=== PATIENT | male | born 1970 | race Two or more races ===

== ENCOUNTER 2020-07-08 07:18 | Inpatient (IN) | payer SELFPAY ==
[~2020-07-08] VITALS: Ht 170.2 cm; Wt 105.5 kg
[2020-07-08 08:27] LABS: Basophils # (auto) 0.1 10 ^3/uL (0-0.2); Basophils % (auto) 0.9 % (0.0-2.0); Eosinophils # (auto) 0.1 10 ^3/uL (0-0.8); Eosinophils % (auto) 1.8 % (0.0-7.0); Hematocrit 42.2 % (41.0-53.0); Hemoglobin 14.3 g/dL (13.5-17.5); Lymphocytes # (auto) 2.1 10 ^3/uL (0.4-5.4); Mean Corpuscular Hemoglobin 32.4 pg (28.0-32.0); Mean Corpuscular Hgb Conc. 33.9 g/dL (32.0-36.0); Mean Corpuscular Volume 95.5 fL (80.0-100.0); Monocytes # (auto) 0.5 10 ^3/uL (0-1.3); Monocytes % (auto) 7.9 % (0.0-12.0); Neutrophils # (auto) 3.9 10 ^3/uL (1.6-8.6); Neutrophils % (auto) 58.4 % (37.0-80.0); Nucleated Red Blood Cells % 0.1 %; Platelet Count (auto) 176 10^3/uL (140-450); Red Blood Cells 4.42 10^6/uL (4.5-5.90); Red Cell Distribution Width 14.6 % (11.8-14.3); White Blood Cell 6.7 10^3/uL (4.4-10.8)
[2020-07-08 08:39] LABS: Albumin 3.5 g/dL (3.4-5.0); Calcium 8.1 mg/dL (8.5-10.1); Magnesium 2.4 mg/dL (1.6-2.6)
[2020-07-08 08:46] LABS: BUN/Creatinine Ratio 19.5; Bilirubin, Total 0.7 mg/dL (0.2-1.0); Total Protein 6.4 g/dL (6.4-8.2)
[2020-07-08] MEDS ORDERED: LORazepam 2MG/ML-1ML VIAL IV ONE (09:30)
[2020-07-08] MEDS ORDERED: FUROSEMIDE 20 MG/2 ML VIAL IV ONE (09:45)
[2020-07-08] MEDS ORDERED: ENOXAPARIN SOD 100 MG/1 ML SYRINGE SC ONE (10:00)
[2020-07-08] MEDS ORDERED: ASPirin 81 mg TAB PO ONE (10:00)
[2020-07-08 10:15] LABS: Urine Bacteria FEW /hpf (None Seen); Urine Blood Negative /uL (Negative); Urine Mucus FEW (None Seen); Urine Specific Gravity 1.028 (1.001-1.035); Urine WBC 1 /hpf (0 - 3)
[2020-07-08] MEDS ORDERED: NITROGLYCERIN 0.4 MG SL TAB SL PRN (10:45)
[2020-07-08] MEDS ORDERED: traMADol HCL 50 MG TAB PO PRN (10:45)
[2020-07-08] MEDS ORDERED: MORPHINE SULF INJ 2 MG/ML SYRINGE 1ML IV PRN ×2 (10:45)
[2020-07-08] MEDS ORDERED: PROMETHAZINE HCL 25 MG/ML 1ML IV PRN (10:45)
[2020-07-08] MEDS ORDERED: LACTULOSE 20Gm/30ML SOLN PO PRN (10:45)
[2020-07-08] MEDS ORDERED: DEXTROSE (50%) 50ML SYRG IV PRN (10:45)
[2020-07-08] MEDS ORDERED: TEMAZEPAM 15 MG CAP PO PRN (10:45)
[2020-07-08 11:24] LABS: Hepatitis B Surface Antibody Negative
[2020-07-08 11:27] LABS: Alcohol, Urine < 3.0 mg/dL (0-10); Amphetamine Screen, Urine NEGATIVE (NEGATIVE); Barbiturate Scree,Urine NEGATIVE (NEGATIVE); Benzodiazephine Screen, Urine NEGATIVE (NEGATIVE); Cannabinoid Screen, Urine NEGATIVE (NEGATIVE); Cocaine Screen, Urine NEGATIVE (NEGATIVE); Opiate Scree,Urine NEGATIVE (NEGATIVE); Phencyclidine Screen, Urine NEGATIVE (NEGATIVE)
[2020-07-08 12:02] LABS: Hepatitis A Total Antibody Positive
[2020-07-08] MEDS: ACCU-CHEK COMFORT CURVE STRIP VI SCH ×3 (12:14→21:36)
[2020-07-08] MEDS: InsuLIN REG 1unit/0.01ml Soln (100units/ml) SC SCH ×3 (12:30→21:35)
[2020-07-08 13:13] LABS: Hepatitis B Surface Antigen Negative (Negative)
[2020-07-08 13:14] LABS: Hepatitis B Core Total AB Negative; Hepatitis C Antibody Negative (Negative)
--- NOTE | 2020-07-08 13:38 | NUR ---
Telemetry admit from [facility] admitted to Telemetry unit after SBAR received. Patient oriented to KATINA MANLEYRN primary RN, unit, room, bed, and unit policies regarding patient care and visiting hours. Patient now on continuous telemetry monitoring, tele box # [id number] and telemetry reading on arrival to unit is SINUS RHYTHM WITH HEART RATE IN THE 70'S. Patient placed on bedside oxygen, weighed by bedscale and encouraged to call if they need something. All questions and concerns addressed, patient verbalized understanding. Note:
[2020-07-08 14:00] VITALS: BP 125/84
[2020-07-08] MEDS: SODIUM CHLOR 0.9% PF (SALINE LOCK) 10ML VIAL/SYR IV SCH ×2 (14:00→23:23)
[2020-07-08 16:39] VITALS: BP 120/89
--- NOTE | 2020-07-08 19:10 | NUR ---
Assumed care of patient from day shift RN, awake and alert and oriented x4. No S/S of distress/SOB or pain. Instructed on POC and to call for assist PRN, safety measures in place call light with in reach bed in lowest position and side rails up x2. will continue to monitor for changes Q1hr and PRN.
[2020-07-08 20:00] VITALS: BP 121/95
[2020-07-08] MEDS: CARVEDILOL 3.125 MG TAB PO SCH (21:36)
[2020-07-08 22:00] VITALS: BP 121/95
[2020-07-09 05:00] VITALS: BP 125/78
[2020-07-09] MEDS: SODIUM CHLOR 0.9% PF (SALINE LOCK) 10ML VIAL/SYR IV SCH ×3 (05:58→22:03)
[2020-07-09] MEDS: InsuLIN REG 1unit/0.01ml Soln (100units/ml) SC SCH ×4 (06:09→22:00)
[2020-07-09] MEDS: ACCU-CHEK COMFORT CURVE STRIP VI SCH ×4 (06:09→22:03)
[2020-07-09 06:57] LABS: Albumin 3.2 g/dL (3.4-5.0); Calcium 8.3 mg/dL (8.5-10.1); Potassium 3.7 mmol/L (3.5-5.1)
[2020-07-09 07:03] LABS: BUN/Creatinine Ratio 18.4; Bilirubin, Total 1.2 mg/dL (0.2-1.0)
[2020-07-09 09:06] VITALS: BP 115/81
[2020-07-09] MEDS: ASPirin 81 mg TAB PO SCH (09:34)
[2020-07-09] MEDS: POTASSIUM CHL 20 Meq TABLET PO SCH (09:35)
[2020-07-09] MEDS: CARVEDILOL 3.125 MG TAB PO SCH ×2 (09:36→22:03)
[2020-07-09] MEDS: FUROSEMIDE 40 MG/4 ML VIAL IV SCH (09:36)
[2020-07-09] MEDS ORDERED: ENALAPRIL MALEATE 2.5 MG TAB PO SCH (10:00)
[2020-07-09] MEDS ORDERED: NITROGLYCERIN 0.2MG/HR TOPICAL PATCH TD SCH (10:00)
[2020-07-09] MEDS ORDERED: ENOXAPARIN SOD 40 MG/0.4 ML SYRINGE SC SCH (10:00)
--- NOTE | 2020-07-09 11:15 | NUR ---
Assumed care of patient Received report from GRACE Schreiber.
--- NOTE | 2020-07-09 11:45 | NUR ---
Dr. Gardner at bedside Discussing POC with patient. No new orders received.
--- NOTE | 2020-07-09 12:26 | NUR ---
Assessment Patient is a 50-year-old male who is alert and oriented. Prior to admission patient lived with family and functioned independently. Per Patient he will return home to his prior living arrangements post discharge and family will transport him home. Per Patient he came in to the hospital for shortness of breath. Patient does not have health insurance. Patient was refer to [facility] Medical consulted. Per patient they already contact him and he needs to bring documentation for the [employer] application. Patient verbalize understanding. Addendum: 07/09/20 at 1313 by BIPIN JONES Amended: Links added.
[2020-07-09 12:34] VITALS: BP 112/85
--- NOTE | 2020-07-09 14:55 | NUR ---
Paging Dr. Gardner Patient c/o ALEX; pain level 3/10 on adult pain scale. Patient only has pain medication ordered for pain scale 4-6. Paging for orders.
[2020-07-09] MEDS ORDERED: ACETAMINOPHEN 325 MG TAB PO PRN (15:15)
--- NOTE | 2020-07-09 15:15 | NUR ---
Received call back Spoke to Dr. Gardner in regards to patient's ALEX. Received new orders for Acetaminophen. Orders read back to verify. Will implement.
[2020-07-09 16:44] VITALS: BP 121/76
--- NOTE | 2020-07-09 19:35 | NUR ---
Opening Shift Note Assumed care of patient, awake and alert x4. No S/S of distress/SOB or pain. Instructed on POC and to call for assist PRN, will continue to monitor for changes Q1hr and PRN.
[2020-07-09 22:00] VITALS: BP 116/88
[2020-07-10 05:00] VITALS: BP 117/87
[2020-07-10] MEDS: SODIUM CHLOR 0.9% PF (SALINE LOCK) 10ML VIAL/SYR IV SCH ×2 (05:53→14:33)
[2020-07-10 06:04] LABS: Basophils # (auto) 0.1 10 ^3/uL (0-0.2); Basophils % (auto) 0.9 % (0.0-2.0); Eosinophils # (auto) 0.1 10 ^3/uL (0-0.8); Eosinophils % (auto) 2.4 % (0.0-7.0); Hematocrit 42.3 % (41.0-53.0); Hemoglobin 14.4 g/dL (13.5-17.5); Lymphocytes # (auto) 1.9 10 ^3/uL (0.4-5.4); Lymphocytes % (auto) 29.7 % (10.0-50.0); Mean Corpuscular Hemoglobin 32.4 pg (28.0-32.0); Mean Corpuscular Hgb Conc. 34.1 g/dL (32.0-36.0); Mean Corpuscular Volume 95.1 fL (80.0-100.0); Monocytes # (auto) 0.6 10 ^3/uL (0-1.3); Monocytes % (auto) 10.3 % (0.0-12.0); Neutrophils # (auto) 3.5 10 ^3/uL (1.6-8.6); Neutrophils % (auto) 56.7 % (37.0-80.0); Nucleated Red Blood Cells % 0.1 %; Platelet Count (auto) 177 10^3/uL (140-450); Red Blood Cells 4.45 10^6/uL (4.5-5.90); Red Cell Distribution Width 14.3 % (11.8-14.3); White Blood Cell 6.2 10^3/uL (4.4-10.8)
[2020-07-10 06:24] LABS: Calcium 8.5 mg/dL (8.5-10.1); Potassium 3.7 mmol/L (3.5-5.1)
[2020-07-10 06:26] LABS: BUN/Creatinine Ratio 17.2
[2020-07-10] MEDS: ACCU-CHEK COMFORT CURVE STRIP VI SCH ×3 (06:27→17:00)
[2020-07-10] MEDS: InsuLIN REG 1unit/0.01ml Soln (100units/ml) SC SCH ×3 (06:27→17:00)
--- NOTE | 2020-07-10 07:30 | NUR ---
Opening Shift Note Assumed care of patient, who is alert and oriented x4. Noted even chest rise and fall. Respirations unlabored. No S/S of distress/SOB or pain. Bed is low, locked with 2x side rails up. Call light is within reach. Instructed on POC and to call for assist PRN, will continue to monitor for changes Q1hr and PRN.
[2020-07-10] MEDS: SACUBITRIL-VALSARTAN 24mg/26mg TAB PO SCH ×2 (07:47→10:00)
[2020-07-10 08:59] VITALS: BP 116/87
[2020-07-10] MEDS: CARVEDILOL 3.125 MG TAB PO SCH (09:22)
[2020-07-10] MEDS: ASPirin 81 mg TAB PO SCH (09:22)
[2020-07-10] MEDS: FUROSEMIDE 40 MG/4 ML VIAL IV SCH (09:22)
[2020-07-10] MEDS: POTASSIUM CHL 20 Meq TABLET PO SCH (09:23)
[2020-07-10] MEDS ORDERED: DIGOXIN 0.125 MG TAB PO SCH (10:00)
[2020-07-10] MEDS ORDERED: SPIRONOLACTONE 25 MG TAB PO SCH (10:00)
--- NOTE | 2020-07-10 11:05 | NUR ---
Dr. Gardner at bedside Discussing POC with patient. Patient states that he had a LHC at [facility] about three months ago and per patient, they did not do any interventions. Patient to be discharged today. Addendum: 07/10/20 at 1121 by Rose Sheriff RN RN Patient will not be discharged until cleared by cardiology due to patient's ejection fraction.
--- NOTE | 2020-07-10 11:06 | NUR ---
Nutrition Assessment Est energy needs [id number] kcal (14-18 kcal/kg BW 105.5kg) Est protein needs 67-87g (1-1.3g/kg IBW 67kg) will reassess prn. Addendum: 07/10/20 at [address] Amended: Links added.
[2020-07-10] MEDS ORDERED: POTA-220 PO (11:12)
[2020-07-10] MEDS ORDERED: FURO1TAB33 PO (11:12)
[2020-07-10] MEDS ORDERED: ASPI81CH43 PO (11:12)
[2020-07-10] MEDS ORDERED: ATOR10TA PO (11:13)
[2020-07-10 13:00] VITALS: BP 121/82
[2020-07-10] MEDS ORDERED: SACU1TAB PO (14:09)
[2020-07-10] MEDS ORDERED: CAR3125T PO (14:09)
[2020-07-10] MEDS ORDERED: DIGO0.1238 PO (14:09)
--- NOTE | 2020-07-10 14:22 | NUR ---
Cleared from cardiology. Informed Dr. Allen that per patient, he had a LHC at [place] and no interventions were done. Received orders to cancel LHC for Sunday. Also informed MD that patient is aware of low EF and per patient, he had a zoll life vest last year but due to malfunction/pricing has not been able to replace it. Patient aware of risks of not having zoll life vest. Per MD, patient can be discharged. Patient to be discharged with Digoxin 0.125 mg PO BID, Entresto 24-26 mg PO BID, Coreg 0.125 mg PO BID. Paged hospitalist Dr. Gardner to make aware. Hospitalist to write prescription for patient. Patient aware that he needs to follow up with [facility] post-discharge clinic and cardiology. Will proceed with discharge.
[2020-07-10 16:21] VITALS: BP 121/82
[2020-07-10 16:59] VITALS: BP 121/83
--- NOTE | 2020-07-10 17:21 | NUR ---
Discharge instructions given as ordered. Encourage to follow up with PMD as instructed. Patient scheduled for follow up appointment with [facility] post-discharge clinic. Patient stated he is in the process of applying for medi-elvia. All questions and concerns addressed. Patient verbalized understanding. Patient given hard copy of prescription and encouraged patient to begin taking medications tomorrow. IV removed with catheter intact, pressure dressing applied.Telemetry unit returned to ICU. Patient ambulated off unit with all personal belongings. No distress noted at time of departure.
== END 2020-07-10 17:25 | disposition home or self-care (01) | DRG 280 ==
LOC: ER 07:18 → TELE 07:19 → TELE-WESTW 13:39
PROVIDERS: ADMIT Internal Medicine; ATTEND Internal Medicine Pulmonary Disease
DX: I21.4 Non-ST elevation (NSTEMI) myocardial infarction (principal); I50.43 Acute on chronic combined systolic (congestive) and diastolic (congestive) heart failure; I11.0 Hypertensive heart disease with heart failure; E66.01 Morbid (severe) obesity due to excess calories; Z68.36 Body mass index [BMI] 36.0-36.9, adult; R79.89 Other specified abnormal findings of blood chemistry; E11.65 Type 2 diabetes mellitus with hyperglycemia; R16.0 Hepatomegaly, not elsewhere classified; G47.30 Sleep apnea, unspecified; F41.9 Anxiety disorder, unspecified
CPT/HCPCS: 36415; 71045; 76705; 80048; 80053; 80061; 80307; 81001; 82550; 82962; 83036; 83735; 83880; 84484; 85025; 86704; 86706; 86708; 86803; 87340; 93306; 96372; 96374; 96375; G0378; J1815

== ENCOUNTER 2022-09-01 16:43 | Inpatient (IN) | payer MEDICAID ==
[~2022-09-01] VITALS: Ht 167.6 cm; Wt 101.7 kg
[~2022-09-01 16:43] MED LIST: ALBUAER3 IN; ASCO10003 PO; ASPI-378 PO; ASPI81CH43 PO; ATOR10TA PO; CAR3125T PO; CARV12.544 PO; DAPA1TAB4 PO; DEX4T PO; DIGO1TAB48 PO; DOXY-286 PO; FURO1TAB33 PO; INSLANTI SC; LISI20TA28 PO; LOSA25TA2 PO; LOSA25TA38 PO; METF-371 PO; PANT40TA2 PO; POM; POTA-220 PO; SACU1TAB PO; ZINC220T6 PO
[2022-09-01 17:33] LABS: Basophils # (auto) 0.1 10 ^3/uL (0-0.2); Eosinophils # (auto) 0.2 10 ^3/uL (0-0.8); Eosinophils % (auto) 2.6 % (0.0-7.0); Hematocrit 42.6 % (41.0-53.0); Hemoglobin 14.4 g/dL (13.5-17.5); Lymphocytes # (auto) 1.8 10 ^3/uL (0.4-5.4); Lymphocytes % (auto) 29.8 % (10.0-50.0); Mean Corpuscular Hemoglobin 31.5 pg (28.0-32.0); Mean Corpuscular Hgb Conc. 33.9 g/dL (32.0-36.0); Mean Corpuscular Volume 92.9 fL (80.0-100.0); Monocytes # (auto) 0.6 10 ^3/uL (0-1.3); Neutrophils # (auto) 3.5 10 ^3/uL (1.6-8.6); Neutrophils % (auto) 57.6 % (37.0-80.0); Nucleated Red Blood Cells % 0.3 %; Red Blood Cells 4.58 10^6/uL (4.5-5.90); White Blood Cell 6.2 10^3/uL (4.4-10.8)
[2022-09-01 17:46] LABS: INR 1.03 (0.9-1.15); Partial Thromboplastin Time 26.4 sec (24.6-33.4)
[2022-09-01 17:55] LABS: Albumin 3.9 g/dL (3.4-5.0); BUN/Creatinine Ratio 18.9; Calcium 8.9 mg/dL (8.5-10.1); Magnesium 2.4 mg/dL (1.6-2.6); Potassium 4.2 mmol/L (3.5-5.1)
[2022-09-01 17:57] LABS: Bilirubin, Total 0.5 mg/dL (0.2-1.0); Total Protein 7.2 g/dL (6.4-8.2)
[2022-09-01] MEDS ORDERED: IOHEXOL 350 MG/ML 100ML IJ ONE (18:56)
[2022-09-01 20:36] LABS: Urine Bacteria NONE SEEN /hpf (None Seen); Urine Blood Negative /uL (Negative); Urine Hyaline Cast FEW /lpf (0 - 2); Urine Mucus FEW (None Seen); Urine Specific Gravity 1.029 (1.001-1.035); Urine WBC 1 /hpf (0 - 3)
[2022-09-01] MEDS ORDERED: ASPirin 325 MG TAB PO ONE (21:30)
[2022-09-01] MEDS ORDERED: HEPARIN SODIUM (PORCINE) 5000 UNITS/ML 1ML VIAL IV ONE (23:00)
[2022-09-01] MEDS ORDERED: DOCUSATE SOD 100 MG CAP PO PRN (23:45)
[2022-09-01] MEDS ORDERED: HYDROcodone-ACET 5/325MG TAB PO PRN (23:45)
[2022-09-01] MEDS ORDERED: DEXTROSE (50%) 50ML SYRG IV PRN (23:45)
[2022-09-01] MEDS ORDERED: NITROGLYCERIN 0.4 MG SL TAB SL PRN (23:45)
[2022-09-01] MEDS ORDERED: MORPHINE SULFATE INJ 2 MG/ml SYRG IV PRN (23:45)
[2022-09-01] MEDS ORDERED: ONDANSETRON HCL 4 MG/2 ML VIAL IV PRN (23:45)
[2022-09-01] MEDS ORDERED: ACETAMINOPHEN 325 MG TAB PO PRN (23:45)
[2022-09-02] MEDS: SODIUM CHLOR 0.9% PF (SALINE LOCK) 10ML VIAL/SYR IV SCH ×3 (06:00→22:00)
[2022-09-02 06:01] LABS: Basophils # (auto) 0.1 10 ^3/uL (0-0.2); Basophils % (auto) 0.9 % (0.0-2.0); Eosinophils # (auto) 0.2 10 ^3/uL (0-0.8); Eosinophils % (auto) 2.7 % (0.0-7.0); Hematocrit 41.7 % (41.0-53.0); Hemoglobin 13.8 g/dL (13.5-17.5); Lymphocytes # (auto) 1.7 10 ^3/uL (0.4-5.4); Lymphocytes % (auto) 28.4 % (10.0-50.0); Mean Corpuscular Hemoglobin 30.5 pg (28.0-32.0); Mean Corpuscular Volume 92.5 fL (80.0-100.0); Monocytes # (auto) 0.6 10 ^3/uL (0-1.3); Monocytes % (auto) 9.4 % (0.0-12.0); Neutrophils # (auto) 3.5 10 ^3/uL (1.6-8.6); Neutrophils % (auto) 58.6 % (37.0-80.0); Nucleated Red Blood Cells % 0.1 %; Red Blood Cells 4.51 10^6/uL (4.5-5.90); Red Cell Distribution Width 14.1 % (11.8-14.3); White Blood Cell 5.9 10^3/uL (4.4-10.8)
[2022-09-02 06:29] LABS: Albumin 3.4 g/dL (3.4-5.0); Calcium 8.9 mg/dL (8.5-10.1); Potassium 4.1 mmol/L (3.5-5.1)
[2022-09-02 06:33] LABS: BUN/Creatinine Ratio 19.7; Bilirubin, Total 0.7 mg/dL (0.2-1.0); Total Protein 6.6 g/dL (6.4-8.2)
[2022-09-02] MEDS: ACCU-CHEK COMFORT CURVE STRIP VI SCH ×4 (06:36→22:00)
[2022-09-02] MEDS: InsuLIN REG 1unit/0.01ml Soln (100units/ml) SC SCH ×4 (06:43→23:03)
[2022-09-02] MEDS: ASPirin 81 mg TAB PO SCH (10:21)
[2022-09-02] MEDS: FAMOTIDINE (10MG/ML) 2ML VL IV SCH (10:21)
[2022-09-02] MEDS: FUROSEMIDE 40 MG/4 ML VIAL IV SCH (10:22)
[2022-09-02] MEDS: HEPARIN SODIUM (PORCINE) 5000 UNITS/ML 1ML VIAL SC SCH ×2 (10:23→23:01)
[2022-09-02] MEDS: CARVEDILOL 3.125 MG TAB PO SCH (22:56)
[2022-09-03] MEDS: SODIUM CHLOR 0.9% PF (SALINE LOCK) 10ML VIAL/SYR IV SCH ×3 (06:00→21:38)
[2022-09-03] MEDS: ACCU-CHEK COMFORT CURVE STRIP VI SCH ×4 (06:56→21:42)
[2022-09-03] MEDS: InsuLIN REG 1unit/0.01ml Soln (100units/ml) SC SCH ×4 (06:58→21:51)
[2022-09-03] MEDS: ASPirin 81 mg TAB PO SCH (11:29)
[2022-09-03] MEDS: FAMOTIDINE (10MG/ML) 2ML VL IV SCH (11:29)
[2022-09-03] MEDS: FUROSEMIDE 40 MG/4 ML VIAL IV SCH (11:29)
[2022-09-03] MEDS: ENALAPRIL MALEATE 2.5 MG TAB PO SCH (11:30)
[2022-09-03] MEDS: CARVEDILOL 3.125 MG TAB PO SCH ×2 (11:30→21:49)
[2022-09-03] MEDS: HEPARIN SODIUM (PORCINE) 5000 UNITS/ML 1ML VIAL SC SCH ×2 (11:36→21:59)
[2022-09-03] MEDS ORDERED: ATORVASTATIN 20 MG TAB PO SCH (22:00)
[2022-09-03 23:24] VITALS: BP 131/92
[2022-09-04] VITALS (9 sets, daily range): BP systolic 114–131; BP diastolic 70–92
[2022-09-04] MEDS: SODIUM CHLOR 0.9% PF (SALINE LOCK) 10ML VIAL/SYR IV SCH (06:02)
[2022-09-04] MEDS: InsuLIN REG 1unit/0.01ml Soln (100units/ml) SC SCH ×4 (06:30→21:39)
[2022-09-04] MEDS: ACCU-CHEK COMFORT CURVE STRIP VI SCH ×4 (06:30→21:39)
[2022-09-04] MEDS: ASPirin 81 mg TAB PO SCH (10:25)
[2022-09-04] MEDS: CARVEDILOL 3.125 MG TAB PO SCH ×2 (10:27→21:43)
[2022-09-04] MEDS: FUROSEMIDE 40 MG/4 ML VIAL IV SCH (10:28)
[2022-09-04] MEDS: FAMOTIDINE (10MG/ML) 2ML VL IV SCH (10:28)
[2022-09-04] MEDS: ENALAPRIL MALEATE 2.5 MG TAB PO SCH (10:28)
[2022-09-04] MEDS: HEPARIN SODIUM (PORCINE) 5000 UNITS/ML 1ML VIAL SC SCH (10:29)
[2022-09-04 14:24] LABS: Cholesterol 218 mg/dL (< 200); HDL Cholesterol 43 mg/dL (40-59); LDL Cholesterol 156 mg/dL (< 100); Triglycerides 159 mg/dL (< 150)
[2022-09-04] MEDS: ATORVASTATIN 20 MG TAB PO SCH (21:39)
[2022-09-05] VITALS (7 sets, daily range): BP systolic 110–131; BP diastolic 75–90
[2022-09-05] MEDS: InsuLIN REG 1unit/0.01ml Soln (100units/ml) SC SCH ×4 (05:52→21:40)
[2022-09-05] MEDS: ACCU-CHEK COMFORT CURVE STRIP VI SCH ×4 (05:52→21:43)
[2022-09-05] MEDS: ASPirin 81 mg TAB PO SCH (09:11)
[2022-09-05] MEDS: EMPAGLIFLOZIN 10 MG TAB PO SCH (09:13)
[2022-09-05] MEDS: CARVEDILOL 3.125 MG TAB PO SCH ×2 (09:13→21:43)
[2022-09-05] MEDS: ENALAPRIL MALEATE 2.5 MG TAB PO SCH (09:14)
[2022-09-05] MEDS: ENOXAPARIN SOD 40 MG/0.4 ML SYRINGE SC SCH (09:14)
[2022-09-05] MEDS: FUROSEMIDE 20 MG TAB PO SCH (09:14)
[2022-09-05] MEDS ORDERED: DAPAGLIFLOZIN 5 MG TAB PO SCH (10:00)
[2022-09-05] MEDS: ATORVASTATIN 20 MG TAB PO SCH (21:42)
[2022-09-06] VITALS (7 sets, daily range): BP systolic 120–141; BP diastolic 75–85
[2022-09-06] MEDS: InsuLIN REG 1unit/0.01ml Soln (100units/ml) SC SCH ×4 (06:15→22:00)
[2022-09-06] MEDS: ACCU-CHEK COMFORT CURVE STRIP VI SCH ×4 (06:16→22:15)
[2022-09-06] MEDS: ASPirin 81 mg TAB PO SCH (09:06)
[2022-09-06] MEDS: FUROSEMIDE 20 MG TAB PO SCH (09:06)
[2022-09-06] MEDS: ENOXAPARIN SOD 40 MG/0.4 ML SYRINGE SC SCH (09:06)
[2022-09-06] MEDS: EMPAGLIFLOZIN 10 MG TAB PO SCH (09:07)
[2022-09-06] MEDS: CARVEDILOL 3.125 MG TAB PO SCH ×2 (09:07→22:15)
[2022-09-06] MEDS: ENALAPRIL MALEATE 2.5 MG TAB PO SCH (09:08)
[2022-09-06] MEDS: ATORVASTATIN 20 MG TAB PO SCH (22:14)
[2022-09-07 05:00] VITALS: BP 119/66
[2022-09-07] MEDS: InsuLIN REG 1unit/0.01ml Soln (100units/ml) SC SCH ×4 (06:53→22:00)
[2022-09-07] MEDS: ACCU-CHEK COMFORT CURVE STRIP VI SCH ×4 (06:53→22:08)
[2022-09-07 08:00] VITALS: BP 122/87
[2022-09-07] MEDS: ENOXAPARIN SOD 40 MG/0.4 ML SYRINGE SC SCH (11:38)
[2022-09-07] MEDS: EMPAGLIFLOZIN 10 MG TAB PO SCH (11:39)
[2022-09-07] MEDS: ASPirin 81 mg TAB PO SCH (11:40)
[2022-09-07] MEDS: ENALAPRIL MALEATE 2.5 MG TAB PO SCH (11:40)
[2022-09-07] MEDS: CARVEDILOL 3.125 MG TAB PO SCH ×2 (11:40→22:08)
[2022-09-07] MEDS: FUROSEMIDE 20 MG TAB PO SCH (11:40)
[2022-09-07 12:00] VITALS: BP 129/84
[2022-09-07 16:00] VITALS: BP 117/77
[2022-09-07 19:58] LABS: Alcohol, Urine < 3.0 mg/dL (0-10); Amphetamine Screen, Urine NEGATIVE (NEGATIVE); Barbiturate Scree,Urine NEGATIVE (NEGATIVE); Benzodiazephine Screen, Urine NEGATIVE (NEGATIVE); Cannabinoid Screen, Urine NEGATIVE (NEGATIVE); Cocaine Screen, Urine NEGATIVE (NEGATIVE); Opiate Scree,Urine NEGATIVE (NEGATIVE); Phencyclidine Screen, Urine NEGATIVE (NEGATIVE)
[2022-09-07 22:00] VITALS: BP 115/80
[2022-09-07] MEDS: ATORVASTATIN 20 MG TAB PO SCH (22:08)
[2022-09-08] VITALS (8 sets, daily range): BP systolic 109–125; BP diastolic 75–92
[2022-09-08] MEDS: InsuLIN REG 1unit/0.01ml Soln (100units/ml) SC SCH ×3 (07:00→17:55)
[2022-09-08] MEDS: ACCU-CHEK COMFORT CURVE STRIP VI SCH ×3 (07:29→17:00)
[2022-09-08] MEDS ORDERED: MIDAZOLAM HCL 2MG/2ML 2ml VIAL (1mg/ml) IV ONE (09:15)
[2022-09-08] MEDS ORDERED: diphenhdrAMINE HCL 50 MG/1 ML VL IV ONE (09:15)
[2022-09-08] MEDS ORDERED: fentaNYL CITRATE 100 MCG/2 ML VL IV ONE (09:15)
[2022-09-08] MEDS ORDERED: LIDOCAINE VISCOUS 2% 15ML UD MT ONE (09:15)
[2022-09-08] MEDS ORDERED: ONDANSETRON HCL 4 MG/2 ML VIAL IV ONE (09:15)
[2022-09-08 09:45] LABS: INR 1.07 (0.9-1.15); Partial Thromboplastin Time 27.6 sec (24.6-33.4)
[2022-09-08 09:48] LABS: Basophils # (auto) 0 10 ^3/uL (0-0.2); Basophils % (auto) 0.6 % (0.0-2.0); Eosinophils # (auto) 0.2 10 ^3/uL (0-0.8); Eosinophils % (auto) 2.4 % (0.0-7.0); Hematocrit 44.8 % (41.0-53.0); Hemoglobin 15.2 g/dL (13.5-17.5); Lymphocytes # (auto) 2.1 10 ^3/uL (0.4-5.4); Lymphocytes % (auto) 28.4 % (10.0-50.0); Mean Corpuscular Hemoglobin 31.5 pg (28.0-32.0); Mean Corpuscular Hgb Conc. 33.8 g/dL (32.0-36.0); Mean Corpuscular Volume 92.9 fL (80.0-100.0); Monocytes # (auto) 0.9 10 ^3/uL (0-1.3); Monocytes % (auto) 13.1 % (0.0-12.0); Neutrophils % (auto) 55.5 % (37.0-80.0); Nucleated Red Blood Cells % 0.1 %; Red Blood Cells 4.82 10^6/uL (4.5-5.90); Red Cell Distribution Width 14.1 % (11.8-14.3); White Blood Cell 7.2 10^3/uL (4.4-10.8)
[2022-09-08 09:55] LABS: Calcium 9.5 mg/dL (8.5-10.1); Potassium 4.2 mmol/L (3.5-5.1)
[2022-09-08 09:57] LABS: BUN/Creatinine Ratio 20.6
[2022-09-08] MEDS: FUROSEMIDE 20 MG TAB PO SCH (10:00)
[2022-09-08] MEDS: CARVEDILOL 3.125 MG TAB PO SCH (10:00)
[2022-09-08] MEDS: ASPirin 81 mg TAB PO SCH (10:00)
[2022-09-08] MEDS: ENOXAPARIN SOD 40 MG/0.4 ML SYRINGE SC SCH (10:00)
[2022-09-08] MEDS: EMPAGLIFLOZIN 10 MG TAB PO SCH (10:00)
[2022-09-08] MEDS ORDERED: PANTOPRAZOLE 40 MG TAB PO SCH (10:00)
[2022-09-08] MEDS: ENALAPRIL MALEATE 2.5 MG TAB PO SCH (10:00)
== END 2022-09-08 20:21 | disposition home or self-care (01) | DRG 45 ==
LOC: ER 16:43 → TELE 23:36 → TELE-WESTW 09-03 23:24
PROVIDERS: ADMIT Nurse Practitioner Family; ATTEND Student in an Organized Health Care Education/Training Program
PROC: B246ZZ4 Ultrasonography of Right and Left Heart, Transesophageal (ICD-10-PCS; principal; 2022-09-08)
DX: I63.9 Cerebral infarction, unspecified (principal); I21.A1 Myocardial infarction type 2; I50.23 Acute on chronic systolic (congestive) heart failure; G40.209 Localization-related (focal) (partial) symptomatic epilepsy and epileptic syndromes with complex partial seizures, not intractable, without status epilepticus; I42.8 Other cardiomyopathies; Z20.822 Contact with and (suspected) exposure to COVID-19; E11.65 Type 2 diabetes mellitus with hyperglycemia; E66.01 Morbid (severe) obesity due to excess calories; Z68.36 Body mass index [BMI] 36.0-36.9, adult; E78.5 Hyperlipidemia, unspecified; F17.200 Nicotine dependence, unspecified, uncomplicated; I11.0 Hypertensive heart disease with heart failure; I25.10 Atherosclerotic heart disease of native coronary artery without angina pectoris; K40.90 Unilateral inguinal hernia, without obstruction or gangrene, not specified as recurrent; Z79.899 Other long term (current) drug therapy; Z79.82 Long term (current) use of aspirin; Z80.42 Family history of malignant neoplasm of prostate; Z82.49 Family history of ischemic heart disease and other diseases of the circulatory system; Z83.3 Family history of diabetes mellitus; Z91.14 Patient's other noncompliance with medication regimen; Z91.199 Patient's noncompliance with other medical treatment and regimen due to unspecified reason; Z79.84 Long term (current) use of oral hypoglycemic drugs
CPT/HCPCS: 36415; 70450; 70496; 70551; 71046; 71260; 74177; 80048; 80053; 80061; 80307; 81001; 82962; 83036; 83735; 83880; 84443; 84484; 85025; 85610; 85730; 86850; 86900; 86901; 87426; 93005; 93306; 93312; 93886; 95819; 96374; 96375; 97163; 99152; 99291; G0378; J1815; J2250; J2405; J3490

== ENCOUNTER 2023-02-05 09:19 | Inpatient (IN) | payer MEDICAID ==
[~2023-02-05] VITALS: Ht 170.2 cm; Wt 100.7 kg
[2023-02-05 10:08] LABS: Basophils # (auto) 0 10 ^3/uL (0-0.2); Basophils % (auto) 0.5 % (0.0-2.0); Eosinophils # (auto) 0.1 10 ^3/uL (0-0.8); Eosinophils % (auto) 1.5 % (0.0-7.0); Hematocrit 41.7 % (41.0-53.0); Hemoglobin 13.8 g/dL (13.5-17.5); Lymphocytes # (auto) 0.8 10 ^3/uL (0.4-5.4); Lymphocytes % (auto) 9.8 % (10.0-50.0); Mean Corpuscular Hemoglobin 30.2 pg (28.0-32.0); Mean Corpuscular Volume 91.6 fL (80.0-100.0); Monocytes # (auto) 0.6 10 ^3/uL (0-1.3); Monocytes % (auto) 7.9 % (0.0-12.0); Neutrophils # (auto) 6.6 10 ^3/uL (1.6-8.6); Neutrophils % (auto) 80.3 % (37.0-80.0); Nucleated Red Blood Cells % 0.1 %; Red Blood Cells 4.56 10^6/uL (4.5-5.90); Red Cell Distribution Width 15.4 % (11.8-14.3); White Blood Cell 8.2 10^3/uL (4.4-10.8)
[2023-02-05 10:34] LABS: Albumin 4.2 g/dL (3.4-5.0); BUN/Creatinine Ratio 16.7 (10.0-20.0); Bilirubin, Total 0.9 mg/dL (0.2-1.0); Calcium 9.2 mg/dL (8.5-10.1); Total Protein 7.3 g/dL (6.4-8.2)
[2023-02-05] MEDS ORDERED: ENOXAPARIN SOD 80 MG/0.8ML SYRINGE SC ONE (11:00)
[2023-02-05 13:24] LABS: Urine Bacteria NONE SEEN /hpf (None Seen); Urine Blood Negative /uL (Negative); Urine Mucus FEW (None Seen); Urine Specific Gravity 1.031 (1.001-1.035); Urine WBC 1 /hpf (0 - 3)
[2023-02-05] MEDS ORDERED: NITROGLYCERIN 0.4 MG SL TAB SL PRN (14:45)
[2023-02-05] MEDS ORDERED: FUROSEMIDE 40 MG/4 ML VIAL IV ONE (14:45)
[2023-02-05] MEDS ORDERED: CLOPIDOGREL BISULFATE 75 MG TAB PO ONE (14:45)
[2023-02-05] MEDS ORDERED: MORPHINE SULFATE INJ 2 MG/ml SYRG IV PRN (14:45)
[2023-02-05] MEDS ORDERED: ASPirin 81 mg TAB PO ONE (14:45)
[2023-02-05 15:04] LABS: Amphetamine Screen, Urine NEGATIVE (NEGATIVE); Barbiturate Scree,Urine NEGATIVE (NEGATIVE); Benzodiazephine Screen, Urine NEGATIVE (NEGATIVE); Cannabinoid Screen, Urine NEGATIVE (NEGATIVE)
[2023-02-05 15:07] LABS: Cocaine Screen, Urine NEGATIVE (NEGATIVE); Opiate Scree,Urine NEGATIVE (NEGATIVE); Phencyclidine Screen, Urine NEGATIVE (NEGATIVE)
[2023-02-05] MEDS: SODIUM CHLORIDE 0.9% 1,000 ML IV SCH (15:19)
[2023-02-05] MEDS: NITROGLYCERIN 0.2MG/HR TOPICAL PATCH TD SCH (15:19)
[2023-02-05 15:41] LABS: INR 1.11 (0.9-1.15)
[2023-02-05] MEDS ORDERED: OPTISON 3ml Vial for INJ IV ONE (16:11)
[2023-02-05] MEDS: ACETAMINOPHEN 325 MG TAB PO PRN (16:28)
[2023-02-05] MEDS ORDERED: LORazepam 2MG/ML-1ML VIAL IV PRN (18:45)
[2023-02-05] MEDS: ATORVASTATIN 20 MG TAB PO SCH (18:47)
[2023-02-05 22:00] VITALS: BP 111/62
[2023-02-05] MEDS ORDERED: ATORVASTATIN 20 MG TAB PO SCH (22:00)
[2023-02-05 22:15] VITALS: BP 111/62
[2023-02-05] MEDS: SACUBITRIL-VALSARTAN 24mg/26mg TAB PO SCH (23:10)
[2023-02-05] MEDS: ENOXAPARIN SOD 80 MG/0.8ML SYRINGE SC SCH (23:10)
[2023-02-05] MEDS: CARVEDILOL 3.125 MG TAB PO SCH (23:11)
[2023-02-05] MEDS ORDERED: ATO40T PO (23:38)
[2023-02-05] MEDS ORDERED: LEVO88TA2 PO (23:40)
[2023-02-05] MEDS ORDERED: METF-371 PO (23:41)
[2023-02-05] MEDS ORDERED: CHOL1TAB28 PO (23:45)
[2023-02-05] MEDS ORDERED: ERGO2000 PO (23:45)
[2023-02-06] MEDS: ACETAMINOPHEN 325 MG TAB PO PRN ×2 (01:00→17:48)
[2023-02-06 05:00] VITALS: BP 103/58
[2023-02-06 06:55] LABS: Basophils # (auto) 0 10 ^3/uL (0-0.2); Basophils % (auto) 0.6 % (0.0-2.0); Eosinophils # (auto) 0 10 ^3/uL (0-0.8); Eosinophils % (auto) 0.6 % (0.0-7.0); Hemoglobin 14.1 g/dL (13.5-17.5); Lymphocytes # (auto) 1.1 10 ^3/uL (0.4-5.4); Lymphocytes % (auto) 18.1 % (10.0-50.0); Mean Corpuscular Hemoglobin 30.9 pg (28.0-32.0); Mean Corpuscular Hgb Conc. 34.3 g/dL (32.0-36.0); Mean Corpuscular Volume 90.3 fL (80.0-100.0); Monocytes # (auto) 0.9 10 ^3/uL (0-1.3); Monocytes % (auto) 15.2 % (0.0-12.0); Neutrophils # (auto) 4.1 10 ^3/uL (1.6-8.6); Neutrophils % (auto) 65.5 % (37.0-80.0); Red Blood Cells 4.55 10^6/uL (4.5-5.90); Red Cell Distribution Width 15.8 % (11.8-14.3); White Blood Cell 6.2 10^3/uL (4.4-10.8)
[2023-02-06 07:11] LABS: Albumin 3.8 g/dL (3.4-5.0); Calcium 8.8 mg/dL (8.5-10.1); Potassium 3.2 mmol/L (3.5-5.1)
[2023-02-06 07:17] LABS: Bilirubin, Total 0.9 mg/dL (0.2-1.0); Total Protein 7.4 g/dL (6.4-8.2)
[2023-02-06] MEDS: SODIUM CHLORIDE 0.9% 1,000 ML IV SCH (07:25)
[2023-02-06 08:36] VITALS: BP 103/58
[2023-02-06 08:40] VITALS: BP 105/59
[2023-02-06] MEDS: ASPirin 81 mg TAB PO SCH (09:07)
[2023-02-06] MEDS: POTASSIUM CHL 20 Meq TABLET PO SCH (09:07)
[2023-02-06] MEDS: PANTOPRAZOLE 40 MG TAB PO SCH (09:07)
[2023-02-06] MEDS: ASCORBIC ACID 1,000 MG TAB PO SCH (09:07)
[2023-02-06] MEDS: FUROSEMIDE 20 MG TAB PO SCH (09:08)
[2023-02-06] MEDS: ZINC SULFATE 220mg CAP or TAB PO SCH (09:08)
[2023-02-06] MEDS: NITROGLYCERIN 0.2MG/HR TOPICAL PATCH TD SCH (09:08)
[2023-02-06] MEDS: SACUBITRIL-VALSARTAN 24mg/26mg TAB PO SCH ×2 (09:09→22:09)
[2023-02-06] MEDS: CARVEDILOL 3.125 MG TAB PO SCH ×2 (09:09→22:09)
[2023-02-06] MEDS: DIGOXIN 0.125 MG TAB PO SCH (09:09)
[2023-02-06] MEDS: ENOXAPARIN SOD 80 MG/0.8ML SYRINGE SC SCH (09:10)
[2023-02-06] MEDS ORDERED: LISINOPRIL 20 MG TAB PO SCH (10:00)
[2023-02-06] MEDS ORDERED: CLOPIDOGREL BISULFATE 75 MG TAB PO SCH (10:00)
[2023-02-06] MEDS ORDERED: ASPirin 81 mg TAB PO SCH (10:00)
[2023-02-06] MEDS ORDERED: LOSARTAN POTASSIUM 25 MG TAB PO SCH (10:00)
[2023-02-06 11:55] VITALS: BP 99/70
[2023-02-06] MEDS ORDERED: POTASSIUM CHL 20 Meq TABLET PO ONE (12:30)
[2023-02-06 16:45] VITALS: BP 120/77
[2023-02-06 22:00] VITALS: BP 110/61
[2023-02-06] MEDS: ATORVASTATIN 20 MG TAB PO SCH (22:08)
[2023-02-07 05:00] VITALS: BP 114/75
[2023-02-07] MEDS: EMPAGLIFLOZIN 10 MG TAB PO SCH (06:37)
[2023-02-07 09:00] VITALS: BP 111/66
[2023-02-07] MEDS: POTASSIUM CHL 20 Meq TABLET PO SCH (09:12)
[2023-02-07] MEDS: SACUBITRIL-VALSARTAN 24mg/26mg TAB PO SCH ×2 (09:12→21:58)
[2023-02-07] MEDS: CARVEDILOL 3.125 MG TAB PO SCH ×2 (09:13→21:59)
[2023-02-07] MEDS: DIGOXIN 0.125 MG TAB PO SCH (09:13)
[2023-02-07] MEDS: SPIRONOLACTONE 25 MG TAB PO SCH (09:13)
[2023-02-07] MEDS: ASPirin 81 mg TAB PO SCH (09:13)
[2023-02-07] MEDS: PANTOPRAZOLE 40 MG TAB PO SCH (09:14)
[2023-02-07] MEDS: ENOXAPARIN SOD 40 MG/0.4 ML SYRINGE SC SCH (09:14)
[2023-02-07] MEDS: FUROSEMIDE 20 MG TAB PO SCH (09:14)
[2023-02-07] MEDS: ASCORBIC ACID 1,000 MG TAB PO SCH (09:14)
[2023-02-07] MEDS: ZINC SULFATE 220mg CAP or TAB PO SCH (09:14)
[2023-02-07] MEDS: NITROGLYCERIN 0.2MG/HR TOPICAL PATCH TD SCH (09:15)
[2023-02-07 13:00] VITALS: BP 125/87
[2023-02-07 17:00] VITALS: BP 118/76
[2023-02-07] MEDS: ATORVASTATIN 20 MG TAB PO SCH (21:58)
[2023-02-07 22:00] VITALS: BP 118/66
[2023-02-08 05:00] VITALS: BP 115/67
[2023-02-08] MEDS: EMPAGLIFLOZIN 10 MG TAB PO SCH (06:25)
[2023-02-08 09:00] VITALS: BP 118/71
[2023-02-08] MEDS: NITROGLYCERIN 0.2MG/HR TOPICAL PATCH TD SCH (09:40)
[2023-02-08] MEDS: FUROSEMIDE 20 MG TAB PO SCH (09:41)
[2023-02-08] MEDS: SACUBITRIL-VALSARTAN 24mg/26mg TAB PO SCH ×2 (09:41→21:34)
[2023-02-08] MEDS: ENOXAPARIN SOD 40 MG/0.4 ML SYRINGE SC SCH (09:41)
[2023-02-08] MEDS: POTASSIUM CHL 20 Meq TABLET PO SCH (09:41)
[2023-02-08] MEDS: ZINC SULFATE 220mg CAP or TAB PO SCH (09:41)
[2023-02-08] MEDS: DIGOXIN 0.125 MG TAB PO SCH (09:41)
[2023-02-08] MEDS: PANTOPRAZOLE 40 MG TAB PO SCH (09:42)
[2023-02-08] MEDS: SPIRONOLACTONE 25 MG TAB PO SCH (09:42)
[2023-02-08] MEDS: CARVEDILOL 3.125 MG TAB PO SCH ×2 (09:42→21:34)
[2023-02-08] MEDS: ASCORBIC ACID 1,000 MG TAB PO SCH (09:42)
[2023-02-08] MEDS: ASPirin 81 mg TAB PO SCH (09:42)
[2023-02-08 13:00] VITALS: BP 125/66
[2023-02-08 17:00] VITALS: BP 130/44
[2023-02-08] MEDS: ATORVASTATIN 20 MG TAB PO SCH (21:34)
[2023-02-08 22:00] VITALS: BP 118/78
[2023-02-09 05:00] VITALS: BP 98/77
[2023-02-09] MEDS: EMPAGLIFLOZIN 10 MG TAB PO SCH (06:08)
[2023-02-09 07:00] VITALS: BP 122/51
[2023-02-09 09:00] VITALS: BP 140/82
[2023-02-09] MEDS: ENOXAPARIN SOD 40 MG/0.4 ML SYRINGE SC SCH (09:12)
[2023-02-09] MEDS: SPIRONOLACTONE 25 MG TAB PO SCH (09:13)
[2023-02-09] MEDS: SACUBITRIL-VALSARTAN 24mg/26mg TAB PO SCH (09:13)
[2023-02-09] MEDS: NITROGLYCERIN 0.2MG/HR TOPICAL PATCH TD SCH (09:13)
[2023-02-09] MEDS: FUROSEMIDE 20 MG TAB PO SCH (09:14)
[2023-02-09] MEDS: DIGOXIN 0.125 MG TAB PO SCH (09:14)
[2023-02-09] MEDS: CARVEDILOL 3.125 MG TAB PO SCH (09:14)
[2023-02-09] MEDS: PANTOPRAZOLE 40 MG TAB PO SCH (09:15)
[2023-02-09] MEDS: ASPirin 81 mg TAB PO SCH (09:15)
[2023-02-09] MEDS: ASCORBIC ACID 1,000 MG TAB PO SCH (09:15)
[2023-02-09] MEDS: POTASSIUM CHL 20 Meq TABLET PO SCH (09:15)
[2023-02-09] MEDS: ZINC SULFATE 220mg CAP or TAB PO SCH (09:15)
[2023-02-09 13:00] VITALS: BP 112/61
[2023-02-09 13:32] VITALS: BP 140/82
== END 2023-02-09 16:10 | disposition home or self-care (01) | DRG 45 ==
LOC: ER 09:19 → TELE 14:36 → TELE-CENTR 21:36
PROVIDERS: ADMIT Nurse Practitioner Family; ATTEND Family Medicine
DX: I63.9 Cerebral infarction, unspecified (principal); I21.4 Non-ST elevation (NSTEMI) myocardial infarction; I50.23 Acute on chronic systolic (congestive) heart failure; G40.209 Localization-related (focal) (partial) symptomatic epilepsy and epileptic syndromes with complex partial seizures, not intractable, without status epilepticus; I11.0 Hypertensive heart disease with heart failure; E11.9 Type 2 diabetes mellitus without complications; E66.9 Obesity, unspecified; F17.200 Nicotine dependence, unspecified, uncomplicated; G81.91 Hemiplegia, unspecified affecting right dominant side; I42.8 Other cardiomyopathies; E78.00 Pure hypercholesterolemia, unspecified; Z68.34 Body mass index [BMI] 34.0-34.9, adult; Z79.899 Other long term (current) drug therapy; Z80.42 Family history of malignant neoplasm of prostate; Z83.3 Family history of diabetes mellitus; Z82.49 Family history of ischemic heart disease and other diseases of the circulatory system; Z86.73 Personal history of transient ischemic attack (TIA), and cerebral infarction without residual deficits; Z91.199 Patient's noncompliance with other medical treatment and regimen due to unspecified reason
CPT/HCPCS: 36415; 70450; 70551; 71045; 80053; 80061; 80307; 81001; 83036; 84443; 84484; 85025; 85610; 86850; 86900; 86901; 93005; 93306; 93886; 94660; 95819; 96372; 97110; 97116; 97163; 97530; 99291; G0378; Q9956

== ENCOUNTER → 2023-04-04 | Outpatient (CLI) | payer MEDICAID ==
[~2023-04-04] VITALS: Ht 167.6 cm; Wt 93.0 kg
[~2023-04-04] MED LIST changes: +ADENOSINE 78 MG in GIVE UN-DILUTED 0 ML IV ONE; +ADENOSINE 90 MG/30 ML INJ IV ONE; +ATO40T PO; +CHOL1TAB28 PO; +ERGO2000 PO; +LEVO88TA2 PO; -LISI20TA28 PO; +LISI20TA56 PO; +LOSA25TA15 PO; -LOSA25TA2 PO; -LOSA25TA38 PO; +LOSA25TA5 PO
== END | disposition home or self-care (01) ==
LOC: Rad HDHVI 08:01
PROVIDERS: ATTEND Internal Medicine Cardiovascular Disease
DX: I50.43 Acute on chronic combined systolic (congestive) and diastolic (congestive) heart failure (principal); R06.02 Shortness of breath; R06.01 Orthopnea; R07.89 Other chest pain; I42.0 Dilated cardiomyopathy; E11.65 Type 2 diabetes mellitus with hyperglycemia; E11.40 Type 2 diabetes mellitus with diabetic neuropathy, unspecified; I25.2 Old myocardial infarction; R60.9 Edema, unspecified
CPT/HCPCS: 78452; 93005; 96374; 96375; A9500; J0153

== ENCOUNTER → 2023-05-07 | Outpatient (CLI) | payer MEDICAID ==
[~2023-05-07] MED LIST changes: -ADENOSINE 78 MG in GIVE UN-DILUTED 0 ML IV ONE; -ADENOSINE 90 MG/30 ML INJ IV ONE; +FURO20TA3 PO; +POTA10TA51 PO
[2023-05-07 14:43] VITALS: BP 138/72; PULSE 86; RESP 18; O2SAT 98
[2023-05-07 14:55] VITALS: BP 128/64; PULSE 104; RESP 18; O2SAT 98
== END | disposition home or self-care (01) ==
LOC: CHF HDHVI 14:38
PROVIDERS: ATTEND Internal Medicine Cardiovascular Disease
DX: I50.43 Acute on chronic combined systolic (congestive) and diastolic (congestive) heart failure (principal); R06.02 Shortness of breath; I51.7 Cardiomegaly; I25.5 Ischemic cardiomyopathy
CPT/HCPCS: 93005; G0463

== ENCOUNTER 2023-05-10 06:34 | Day surgery (SDC) | payer MEDICAID ==
[2023-05-07 15:28] LABS: Basophils # (auto) 0.1 10 ^3/uL (0-0.2); Eosinophils # (auto) 0.1 10 ^3/uL (0-0.8); Eosinophils % (auto) 0.9 % (0.0-7.0); Hematocrit 39.5 % (41.0-53.0); Hemoglobin 13.4 g/dL (13.5-17.5); Lymphocytes # (auto) 2.3 10 ^3/uL (0.4-5.4); Lymphocytes % (auto) 33.2 % (10.0-50.0); Mean Corpuscular Hemoglobin 31.3 pg (28.0-32.0); Mean Corpuscular Hgb Conc. 33.8 g/dL (32.0-36.0); Mean Corpuscular Volume 92.6 fL (80.0-100.0); Monocytes # (auto) 0.4 10 ^3/uL (0-1.3); Monocytes % (auto) 6.2 % (0.0-12.0); Neutrophils % (auto) 58.7 % (37.0-80.0); Nucleated Red Blood Cells % 0.2 %; Red Blood Cells 4.27 10^6/uL (4.5-5.90); Red Cell Distribution Width 15.4 % (11.8-14.3); White Blood Cell 6.9 10^3/uL (4.4-10.8)
[2023-05-07 15:49] LABS: INR 1.1 (0.9-1.15); Partial Thromboplastin Time 27.1 SEC (24.5-34.5); Prothrombin Time 11.5 sec (9.3-11.8)
[2023-05-07 16:25] LABS: Calcium 9.1 mg/dL (8.5-10.1); Potassium 3.6 mmol/L (3.5-5.1)
[2023-05-07 16:28] LABS: BUN/Creatinine Ratio 24.3 (10.0-20.0)
[~2023-05-10] VITALS: Ht 170.2 cm; Wt 90.3 kg
[2023-05-10] VITALS (9 sets, daily range): BP systolic 116–130; BP diastolic 80–96; PULSE 78–84; RESP 14–20; TEMP 97.8; O2SAT 95–98
[~2023-05-10 06:34] MED LIST changes: -ASPI-378 PO; -ATO40T PO; -CARV12.544 PO; -DAPA1TAB4 PO; -DEX4T PO; -DOXY-286 PO; -FURO1TAB33 PO; -INSLANTI SC; -LOSA25TA5 PO; -POTA-220 PO
[2023-05-10] MEDS ORDERED: ANGIOMAX 250 MG VIAL IV ONE (09:46)
[2023-05-10] MEDS ORDERED: fentaNYL CITRATE 100 MCG/2 ML VL ONE (09:47)
[2023-05-10] MEDS ORDERED: LIDOCAINE 2%HCL (LOCAL ANESTH.) INJ 20ML MDV ONE (09:47)
[2023-05-10] MEDS ORDERED: SODIUM CHL 0.9% 0 ML ONE (09:47)
[2023-05-10] MEDS ORDERED: MIDAZOLAM HCL 2MG/2ML 2ml VIAL (1mg/ml) ONE (09:47)
[2023-05-10] MEDS ORDERED: IOHEXOL 350 MG/ML 100ML IJ ONE (09:47)
== END 2023-05-10 12:40 | disposition home or self-care (01) ==
LOC: CATH 06:34
PROVIDERS: ATTEND Internal Medicine Cardiovascular Disease
DX: I42.0 Dilated cardiomyopathy (principal); I25.5 Ischemic cardiomyopathy; I10 Essential (primary) hypertension; E78.5 Hyperlipidemia, unspecified; E11.40 Type 2 diabetes mellitus with diabetic neuropathy, unspecified; Z80.0 Family history of malignant neoplasm of digestive organs; Z80.9 Family history of malignant neoplasm, unspecified; Z79.82 Long term (current) use of aspirin; Z79.899 Other long term (current) drug therapy; Z98.890 Other specified postprocedural states
CPT/HCPCS: 36415; 80048; 85025; 85610; 85730; 93458; C1894; J1644; J2250; J3010; J7030; Q9967; 99152

== ENCOUNTER → 2023-07-02 | Outpatient (CLI) | payer MEDICAID ==
[~2023-07-02] MED LIST changes: +ASCO100076 PO; +ASPI1TAB19 PO; +ASPI81CA PO; +ATOR40TA52 PO; +CARV3.1240 PO; +CEPH500C PO; +CHOL500024 PO; +CYAN100056 PO; +CYCL-839 PO; +EMPA1TAB PO; +INSLANTI SC; +POTA-228 PO
[2023-07-02 09:02] VITALS: BP 150/87; PULSE 71; RESP 18; O2SAT 98
[2023-07-02 09:33] VITALS: BP 147/86; PULSE 72; RESP 18; O2SAT 98
== END | disposition home or self-care (01) ==
LOC: CHF HDHVI 08:57
PROVIDERS: ATTEND Internal Medicine Cardiovascular Disease
DX: Z01.818 Encounter for other preprocedural examination (principal); I50.43 Acute on chronic combined systolic (congestive) and diastolic (congestive) heart failure; I42.0 Dilated cardiomyopathy; R06.02 Shortness of breath; R00.2 Palpitations; I51.7 Cardiomegaly; R94.31 Abnormal electrocardiogram [ECG] [EKG]
CPT/HCPCS: 93005; G0463

== ENCOUNTER 2023-07-05 07:17 | Day surgery (SDC) | payer MEDICAID ==
[2023-07-02 11:38] LABS: Basophils # (auto) 0 10 ^3/uL (0-0.2); Basophils % (auto) 0.7 % (0.0-2.0); Eosinophils # (auto) 0.1 10 ^3/uL (0-0.8); Eosinophils % (auto) 1.5 % (0.0-7.0); Hematocrit 41.2 % (41.0-53.0); Hemoglobin 14.5 g/dL (13.5-17.5); Lymphocytes # (auto) 2.3 10 ^3/uL (0.4-5.4); Lymphocytes % (auto) 33.2 % (10.0-50.0); Mean Corpuscular Hemoglobin 32.6 pg (28.0-32.0); Mean Corpuscular Hgb Conc. 35.1 g/dL (32.0-36.0); Mean Corpuscular Volume 92.7 fL (80.0-100.0); Monocytes # (auto) 0.6 10 ^3/uL (0-1.3); Monocytes % (auto) 8.4 % (0.0-12.0); Neutrophils # (auto) 3.9 10 ^3/uL (1.6-8.6); Neutrophils % (auto) 56.2 % (37.0-80.0); Nucleated Red Blood Cells % 0.1 %; Red Blood Cells 4.44 10^6/uL (4.5-5.90); Red Cell Distribution Width 14.4 % (11.8-14.3); White Blood Cell 6.9 10^3/uL (4.4-10.8)
[2023-07-02 11:56] LABS: INR 1.1 (0.9-1.15); Partial Thromboplastin Time 29.1 SEC (24.5-34.5); Prothrombin Time 11.5 sec (9.3-11.8)
[2023-07-02 12:25] LABS: Calcium 9.9 mg/dL (8.7-10.4); Chloride 105 mmol/L (98-107); Potassium 4.1 mmol/L (3.5-5.1); Sodium 140 mmol/L (136-145)
[2023-07-02 12:26] LABS: Anion Gap 9 (5-15); Carbon Dioxide 26 mmol/L (20-30)
[2023-07-02 12:31] LABS: BUN/Creatinine Ratio 14.5 (10.0-20.0); Blood Urea Nitrogen 12 mg/dL (9-23); Glucose 94 mg/dL (74-106)
[~2023-07-05] VITALS: Ht 167.6 cm; Wt 86.2 kg
[~2023-07-05 07:17] MED LIST changes: -ALBUAER3 IN; -ASCO100076 PO; -ASPI1TAB19 PO; -ASPI81CH43 PO; -ATOR10TA PO; -CARV3.1240 PO; -CEPH500C PO; -CHOL1TAB28 PO; -DIGO1TAB48 PO; -ERGO2000 PO; -LISI20TA56 PO; -LOSA25TA15 PO; -PANT40TA2 PO; -POM; -POTA10TA51 PO; -SACU1TAB PO; -ZINC220T6 PO
[2023-07-05] MEDS ORDERED: VANCOMYCIN 1GM/250ML 250 ML IV ONE (08:15)
[2023-07-05] MEDS ORDERED: IODIXANOL 320MG/ML 100ML BTL IV ONE (08:37)
[2023-07-05] MEDS ORDERED: LIDOCAINE 2%HCL (LOCAL ANESTH.) INJ 20ML MDV ONE (08:38)
[2023-07-05] MEDS ORDERED: MIDAZOLAM HCL 2MG/2ML 2ml VIAL (1mg/ml) ONE ×2 (09:29→09:38)
[2023-07-05] MEDS ORDERED: fentaNYL CITRATE 100 MCG/2 ML VL ONE ×2 (09:29→09:38)
[2023-07-05] MEDS ORDERED: VANCOMYCIN HCL 1000 MG VL ONE (09:33)
[2023-07-05] MEDS ORDERED: ASPI1TAB19 PO (12:15)
[2023-07-05] MEDS ORDERED: ASCO100076 PO (12:15)
[2023-07-05] MEDS ORDERED: CEPH500C PO (12:15)
[2023-07-05] MEDS ORDERED: CARV3.1240 PO (12:15)
== END 2023-07-05 13:53 | disposition home or self-care (01) ==
LOC: CATH 07:17
PROVIDERS: ATTEND Internal Medicine Cardiovascular Disease
DX: I42.0 Dilated cardiomyopathy (principal); I11.0 Hypertensive heart disease with heart failure; I50.22 Chronic systolic (congestive) heart failure; I25.5 Ischemic cardiomyopathy; E11.40 Type 2 diabetes mellitus with diabetic neuropathy, unspecified; E11.21 Type 2 diabetes mellitus with diabetic nephropathy; E78.5 Hyperlipidemia, unspecified; E03.9 Hypothyroidism, unspecified; E66.9 Obesity, unspecified; Z79.899 Other long term (current) drug therapy; Z79.84 Long term (current) use of oral hypoglycemic drugs; Z79.82 Long term (current) use of aspirin
CPT/HCPCS: 33264; 36415; 71045; 80048; 82962; 85025; 85610; 85730; C1730; C1769; C1882; C1887; C1895; C1898; C1900; J2250; J3010; J3370; J7030; Q9967; 93005; 99152

== ENCOUNTER → 2023-09-13 | Outpatient (CLI) | payer MEDICAID ==
[~2023-09-13] MED LIST changes: -ASCO10003 PO; +ASCO100076 PO; +ASPI1TAB19 PO; -ASPI81CA PO; -CAR3125T PO; +CARV3.1240 PO; +CEPH500C PO
== END | disposition home or self-care (01) ==
LOC: Rad HDHVI 09:08
PROVIDERS: ATTEND Internal Medicine Cardiovascular Disease
DX: I08.0 Rheumatic disorders of both mitral and aortic valves (principal); I11.9 Hypertensive heart disease without heart failure; R06.02 Shortness of breath
CPT/HCPCS: 93306

== ENCOUNTER 2024-02-04 18:24 | Inpatient (IN) | payer MEDICAID ==
[~2024-02-04] VITALS: Ht 167.6 cm; Wt 82.5 kg
[2024-02-04 19:58] LABS: Basophils # (auto) 0 10 ^3/uL (0-0.2); Basophils % (auto) 0.7 % (0.0-2.0); Eosinophils # (auto) 0.2 10 ^3/uL (0-0.8); Eosinophils % (auto) 2.5 % (0.0-7.0); Hematocrit 37.8 % (41.0-53.0); Hemoglobin 12.7 g/dL (13.5-17.5); Lymphocytes # (auto) 2.8 10 ^3/uL (0.4-5.4); Lymphocytes % (auto) 44.1 % (10.0-50.0); Mean Corpuscular Hemoglobin 29.4 pg (28.0-32.0); Mean Corpuscular Hgb Conc. 33.5 g/dL (32.0-36.0); Mean Corpuscular Volume 87.6 fL (80.0-100.0); Monocytes # (auto) 0.7 10 ^3/uL (0-1.3); Monocytes % (auto) 10.4 % (0.0-12.0); Neutrophils # (auto) 2.7 10 ^3/uL (1.6-8.6); Neutrophils % (auto) 42.3 % (37.0-80.0); Nucleated Red Blood Cells % 0.2 %; Red Blood Cells 4.31 10^6/uL (4.5-5.90); Red Cell Distribution Width 14.6 % (11.8-14.3); White Blood Cell 6.3 10^3/uL (4.4-10.8)
[2024-02-04 20:13] LABS: Alanine Aminotransferase 17 U/L (7-40); Albumin 4.2 g/dL (3.2-4.8); Alkaline Phosphatase 70 U/L (46-116); Anion Gap 9 (5-15); Aspartate Aminotransferase 21 U/L (13-40); BUN/Creatinine Ratio 18.3 (10.0-20.0); Bilirubin, Total 0.5 mg/dL (0.2-1.0); Blood Urea Nitrogen 13 mg/dL (9-23); Calcium 9.8 mg/dL (8.5-10.1); Carbon Dioxide 24 mmol/L (20-30); Chloride 109 mmol/L (98-107); Glucose 76 mg/dL (74-106); Potassium 4.1 mmol/L (3.5-5.1); Sodium 142 mmol/L (136-145); Total Protein 7.1 g/dL (5.7-8.2)
[2024-02-04 20:17] LABS: INR 1.18 (0.9-1.15); Partial Thromboplastin Time 27.5 SEC (24.5-34.5); Prothrombin Time 12.4 sec (9.3-11.8)
[2024-02-04 20:21] LABS: Lactic Acid w/Reflex 2.2 mmol/L (0.4-2.0)
[2024-02-04 23:27] VITALS: PULSE 65; RESP 20; O2SAT 96
[2024-02-05] MEDS ORDERED: DEXTROSE (50%) 50ML SYRG IV PRN (00:30)
[2024-02-05] MEDS ORDERED: NITROGLYCERIN 0.4 MG SL TAB SL PRN (00:30)
[2024-02-05] MEDS ORDERED: ONDANSETRON HCL 4 MG/2 ML VIAL IV PRN (00:30)
[2024-02-05] MEDS ORDERED: MORPHINE SULFATE INJ 2 MG/ml SYRG IV PRN (00:30)
[2024-02-05] MEDS: ACETAMINOPHEN 325 MG TAB PO PRN (05:19)
[2024-02-05 06:33] LABS: Urine Bacteria FEW /hpf (None Seen); Urine Blood Negative /uL (Negative); Urine Clarity Clear (Clear); Urine Color Yellow (Yellow); Urine Mucus FEW (None Seen); Urine Protein, UAD Negative (Negative); Urine Specific Gravity 1.022 (1.001-1.035); Urine Sperm PRESENT /hpf (None Seen); Urine Urobilinogen 2 mg/dL (Negative); Urine WBC 1 /hpf (0 - 3); Urine pH 5.5 (5.0-9.0)
[2024-02-05] MEDS: ACCU-CHEK COMFORT CURVE STRIP VI SCH (06:36)
[2024-02-05] MEDS: InsuLIN REG 1unit/0.01ml Soln (100units/ml) SC SCH (06:38)
[2024-02-05] MEDS: LEVOTHYROXINE SODIUM 88 MCG TAB PO SCH (06:39)
[2024-02-05 06:40] LABS: Urine Hyaline Cast FEW /lpf (0 - 2)
[2024-02-05 07:49] VITALS: PULSE 73; RESP 18; O2SAT 95
[2024-02-05 10:11] LABS: Basophils # (auto) 0.1 10 ^3/uL (0-0.2); Basophils % (auto) 1.1 % (0.0-2.0); Eosinophils # (auto) 0.1 10 ^3/uL (0-0.8); Eosinophils % (auto) 1.6 % (0.0-7.0); Hematocrit 39.5 % (41.0-53.0); Hemoglobin 13.6 g/dL (13.5-17.5); Lymphocytes # (auto) 2.1 10 ^3/uL (0.4-5.4); Lymphocytes % (auto) 34.8 % (10.0-50.0); Mean Corpuscular Hgb Conc. 34.5 g/dL (32.0-36.0); Mean Corpuscular Volume 87.2 fL (80.0-100.0); Monocytes # (auto) 0.5 10 ^3/uL (0-1.3); Monocytes % (auto) 8.5 % (0.0-12.0); Neutrophils # (auto) 3.3 10 ^3/uL (1.6-8.6); Red Blood Cells 4.53 10^6/uL (4.5-5.90); Red Cell Distribution Width 14.4 % (11.8-14.3); White Blood Cell 6.2 10^3/uL (4.4-10.8)
[2024-02-05 10:29] LABS: Alanine Aminotransferase 18 U/L (7-40); Albumin 4.2 g/dL (3.2-4.8); Alkaline Phosphatase 68 U/L (46-116); Anion Gap 8 (5-15); Aspartate Aminotransferase 29 U/L (13-40); BUN/Creatinine Ratio 13.7 (10.0-20.0); Bilirubin, Total 0.8 mg/dL (0.2-1.0); Blood Urea Nitrogen 10 mg/dL (9-23); Calcium 9.9 mg/dL (8.5-10.1); Carbon Dioxide 24 mmol/L (20-30); Chloride 107 mmol/L (98-107); Glucose 131 mg/dL (74-106); Sodium 139 mmol/L (136-145); Total Protein 7.5 g/dL (5.7-8.2)
[2024-02-05] MEDS: EMPAGLIFLOZIN 10 MG TAB PO SCH (11:07)
[2024-02-05] MEDS: FUROSEMIDE 20 MG TAB PO SCH (11:08)
[2024-02-05] MEDS: CARVEDILOL 3.125 MG TAB PO SCH (11:08)
[2024-02-05] MEDS: CLOPIDOGREL BISULFATE 75 MG TAB PO SCH (11:09)
[2024-02-05] MEDS: ASPirin 81 mg TAB PO SCH (11:10)
[2024-02-05] MEDS: LOSARTAN POTASSIUM 25 MG TAB PO SCH (11:11)
[2024-02-05] MEDS: ENOXAPARIN SOD 40 MG/0.4 ML SYRINGE SC SCH (11:11)
[2024-02-05 11:28] VITALS: O2SAT 96
[2024-02-05 16:19] LABS: Triglycerides 79 mg/dL (< 150)
[2024-02-05 16:20] LABS: LDL Cholesterol 55 mg/dL (< 100)
[2024-02-05 16:21] LABS: Cholesterol 102 mg/dL (< 200); HDL Cholesterol 33 mg/dL (40-59)
[2024-02-05 16:30] VITALS: BP 140/85; PULSE 69; RESP 20; TEMP 98.1; O2SAT 97
[2024-02-05 20:00] VITALS: BP 145/83; PULSE 77; PULSE 83; RESP 17; TEMP 97.9; O2SAT 95
[2024-02-05 21:45] VITALS: BP 145/83; PULSE 83; RESP 17; TEMP 97.9; O2SAT 95
[2024-02-05] MEDS ORDERED: ATORVASTATIN 20 MG TAB PO SCH (22:00)
[2024-02-05] MEDS: SACUBITRIL-VALSARTAN 24mg/26mg TAB PO SCH (22:05)
[2024-02-05] MEDS: ATORVASTATIN 20 MG TAB PO SCH (22:06)
[2024-02-06] VITALS (11 sets, daily range): BP systolic 108–131; BP diastolic 71–82; PULSE 72–91; RESP 16–20; TEMP 97.4–98.3; O2SAT 92–99
[2024-02-06 06:34] LABS: Chloride 107 mmol/L (98-107); Potassium 3.6 mmol/L (3.5-5.1); Sodium 137 mmol/L (136-145)
[2024-02-06 06:35] LABS: Anion Gap 5 (5-15); Calcium 9.9 mg/dL (8.7-10.4); Carbon Dioxide 25 mmol/L (20-30)
[2024-02-06 06:40] LABS: BUN/Creatinine Ratio 15.3 (10.0-20.0); Blood Urea Nitrogen 11 mg/dL (9-23); Glucose 110 mg/dL (74-106)
[2024-02-06 06:56] LABS: Basophils # (auto) 0.1 10 ^3/uL (0-0.2); Basophils % (auto) 0.7 % (0.0-2.0); Eosinophils # (auto) 0.1 10 ^3/uL (0-0.8); Eosinophils % (auto) 1.8 % (0.0-7.0); Hemoglobin 13.5 g/dL (13.5-17.5); Lymphocytes # (auto) 2.5 10 ^3/uL (0.4-5.4); Lymphocytes % (auto) 32.8 % (10.0-50.0); Mean Corpuscular Hemoglobin 29.8 pg (28.0-32.0); Mean Corpuscular Hgb Conc. 33.7 g/dL (32.0-36.0); Mean Corpuscular Volume 88.4 fL (80.0-100.0); Monocytes # (auto) 0.8 10 ^3/uL (0-1.3); Monocytes % (auto) 10.7 % (0.0-12.0); Neutrophils # (auto) 4.1 10 ^3/uL (1.6-8.6); Nucleated Red Blood Cells % 0.1 %; Red Blood Cells 4.53 10^6/uL (4.5-5.90); Red Cell Distribution Width 14.1 % (11.8-14.3); White Blood Cell 7.5 10^3/uL (4.4-10.8)
[2024-02-06] MEDS: FUROSEMIDE 20 MG/2 ML VIAL IV SCH (09:26)
[2024-02-06] MEDS: SPIRONOLACTONE 25 MG TAB PO SCH (09:27)
[2024-02-06] MEDS: ASPirin 81 mg TAB PO SCH (09:27)
[2024-02-06] MEDS ORDERED: CARV6.2551 PO (14:05)
[2024-02-06] MEDS ORDERED: IVAB1.7T PO (14:11)
[2024-02-06] MEDS ORDERED: IBUP-1454 PO (14:11)
[2024-02-07 01:00] VITALS: BP 125/74; PULSE 79; RESP 14; TEMP 98.1; O2SAT 95
[2024-02-07 05:00] VITALS: BP 102/70; PULSE 86; RESP 14; TEMP 97.9; O2SAT 97
[2024-02-07] MEDS: LEVOTHYROXINE SODIUM 25 MCG TAB PO SCH (06:12)
[2024-02-07 08:00] VITALS: PULSE 101
[2024-02-07] MEDS ORDERED: SACU1TAB PO (08:40)
[2024-02-07] MEDS ORDERED: LEVO25TA6 PO (08:40)
[2024-02-07] MEDS ORDERED: CLOP75TA70 PO (08:40)
[2024-02-07] MEDS ORDERED: ATOR-47 PO (08:40)
[2024-02-07 09:00] VITALS: BP 98/62; PULSE 92; TEMP 98.4; O2SAT 98
[2024-02-07 11:26] VITALS: BP 98/62; PULSE 92; TEMP 36.6
[2024-02-07 12:49] VITALS: BP 137/73; PULSE 90; RESP 16; TEMP 98.2; O2SAT 96
== END 2024-02-07 14:46 | disposition home or self-care (01) | DRG 194 ==
LOC: ER 18:24 → EDBD 18:24 → EDUNIT# 18:24 → TELE 02-05 00:25 → TELE-CENTR 02-05 10:28
PROVIDERS: ADMIT Internal Medicine; ATTEND Internal Medicine
DX: I11.0 Hypertensive heart disease with heart failure (principal); G93.49 Other encephalopathy; I21.A1 Myocardial infarction type 2; G45.9 Transient cerebral ischemic attack, unspecified; I50.23 Acute on chronic systolic (congestive) heart failure; I42.0 Dilated cardiomyopathy; E11.9 Type 2 diabetes mellitus without complications; E03.9 Hypothyroidism, unspecified; E78.5 Hyperlipidemia, unspecified; F17.200 Nicotine dependence, unspecified, uncomplicated; E66.3 Overweight; Z86.73 Personal history of transient ischemic attack (TIA), and cerebral infarction without residual deficits; Z95.810 Presence of automatic (implantable) cardiac defibrillator; Z79.899 Other long term (current) drug therapy; Z79.82 Long term (current) use of aspirin; Z80.42 Family history of malignant neoplasm of prostate; Z82.49 Family history of ischemic heart disease and other diseases of the circulatory system; Z83.3 Family history of diabetes mellitus; Z68.29 Body mass index [BMI] 29.0-29.9, adult
CPT/HCPCS: 36415; 70450; 70551; 71045; 71046; 80048; 80053; 80061; 81001; 82962; 83036; 83605; 83880; 84439; 84443; 84484; 85025; 85610; 85730; 93005; 93306; 97116; 97163; 97530; G0378; J1815

== ENCOUNTER 2024-08-20 09:10 | Inpatient (IN) | payer MEDICAID ==
[~2024-08-20] VITALS: Ht 175.3 cm; Wt 91.0 kg
[2024-08-20] MEDS: SODIUM CHLOR 0.9% PF (SALINE LOCK) 10ML VIAL/SYR IV SCH (01:30)
[~2024-08-20 09:10] MED LIST changes: +ATOR-47 PO; -ATOR40TA52 PO; -CARV3.1240 PO; +CARV6.2551 PO; -CEPH500C PO; +CLOP75TA70 PO; +IBUP-1454 PO; +IVAB1.7T PO; +LEVO25TA6 PO; -LEVO88TA2 PO; +SACU1TAB PO
--- NOTE | 2024-08-20 09:52 | ED.PDOC ---
General HPI Comments 54 year old male TABITHA presents to the ED with chief complaint of flank pain. Patient reports that he has been experiencing right sided flank pain since 7pm last night, rating it an 8/10 pain. Patient denies any dysuria, hematuria, abdominal pain, fever, or chills. Chief Complaint: Flank Pain Time Seen by MD: 09:50 Primary Care Provider: Jeanette Reviewed notes: Nurses Notes, Paver Operator Notes, Medications, Allergies Allergies: Coded Allergies: NO KNOWN ALLERGIES (Unverified , 07/02/23) Home Meds Active Scripts Sacubitril-Valsartan (Entresto 24-26 mg) 1 Tab Tab, 1 TAB PO BID for 30 Days, #60 TAB Prov:CHRISTIANNE GRIGSBY RESIDENT 02/07/24 Atorvastatin Calcium (ATORVASTATIN CALCIUM) 80 Mg Tab, 80 MG PO DAILY for 30 Days, #30 TAB Prov:CHRISTIANNE GRIGSBY RESIDENT 02/07/24 Levothyroxine Sodium (Levothyroxine Sodium) 25 Mcg Tab, 75 MCG PO DAILY for 30 Days, #90 TAB Prov:CHRISTIANNE GRIGSBY RESIDENT 02/07/24 Clopidogrel Bisulfate (CLOPIDOGREL) 75 Mg Tab, 75 MG PO DAILY for 30 Days, #30 TAB Prov:CHRISTIANNE GRIGSBY RESIDENT 02/07/24 Reported Medications Ivabradine Hydrochloride (Corlanor) 5 Mg Tab, 1 TAB PO BID 02/06/24 Ibuprofen (Ibuprofen) 600 Mg Tab, 1 TAB PO BID PRN 02/06/24 Carvedilol (Carvedilol) 6.25 Mg Tab, 1 TAB PO BID 02/06/24 Ascorbic Acid (Vitamin C) 1,000 Mg Tab, 1 TAB PO DAILY for SUPPLEMENT 07/05/23 Aspirin (Aspirin) 81 Mg Tab, 1 TAB PO DAILY for HEART ATTACK PREVENTION 07/05/23 Cyclobenzaprine Hcl (Cyclobenzaprine Hcl) 10 Mg Tab, 1 TAB PO Q8HR PRN for MUSCLE SPASMS 07/02/23 Empagliflozin (Jardiance) 10 Mg Tab, 1 TAB PO QAM for DIABETES 07/02/23 Cyanocobalamin (B-12) 1,000 Mcg Cap, 1 CAP PO DAILY for SUPPLEMENT 07/02/23 Cholecalciferol (VITAMIN D3 MAXIMUM STRENG) 5,000 Unit Cap, 1 CAP PO DAILY for SUPPLEMENT 07/02/23 Potassium Chloride (Potassium Chloride ER) 10 Meq Tab, 1 TAB PO BIDWM for SUP PLEMENT 07/02/23 Metformin Hydrochloride (Metformin Hcl) 850 Mg Tab, 1 TAB PO BID for DIABETES 07/02/23 Insulin Glargine (Lantus) 100 Unit/Ml Inj, 20 UNIT SC HS for DIABETES HOLD FOR 2 DAYS. MAY RESUME ON Sunday07/07/23 07/02/23 Furosemide (Furosemide) 20 Mg Tab, 1 TAB PO DAILY for CHF 05/07/23 Information Source: Patient, Emergency Med Personnel Mode of Arrival: EMS Severity: Moderate Inability to void: None Timing: Days Duration: Since onset Prehospital treatment: None Onset: Spontaneous Symptoms: None History of: None Location: (R) Flank Penile discharge: None Modifying factors: None associated signs and symptoms: Flank Pain Past Medical History PAST MEDICAL HISTORY: CVA, DM, HTN Surgical History: Pacemaker Family History Family History: Reviewed,noncontributory to illness, Unknown Social History Smoker: Non-Smoker Alcohol: Denies ETOH Use Drugs: Denies Drug Use Lives In: Home Constitutional: denies: chills, diaphoresis, fatigue, fever, malaise, sweats, weakness, others EENTM: denies: blurred vision, double vision, ear bleeding, ear discharge, ear drainage, ear pain, ear ringing, eye pain, eye redness, hearing loss, mouth pain, mouth swelling, nasal discharge, nose bleeding, nose congestion, nose pain, photophobia, tearing, throat pain, throat swelling, voice changes, others Respiratory: denies: cough, hemoptysis, orthopnea, SOB at rest, shortness of breath, SOB with excertion, stridor, wheezing, others Cardiovascular: denies: chest pain, dizzy spells, diaphoresis, Dyspnea on exertion, edema, irregular heart beat, left arm pain, lightheadedness, palpitations, PND, syncope, others Gastrointestinal: denies: abdomen distended, abdominal pain, blood streaked bowels, constipated, diarrhea, dysphagia, difficulty swallowing, hematemesis, melena, nausea, poor appetite, poor fluid intake, rectal bleeding, rectal pain, vomiting, others Genitourinary: reports: flank pain (Rt); denies: burning, dysuria, frequency, hematuria, incontinence, penile discharge, penile sore, pain, testicle pain, testicle swelling, urgency, others Neurological: denies: dizziness, fainting, headache, left sided numbness, left sided weakness, numbness, paresthesia, pre-existing deficit, right sided numbness, right sided weakness, seizure, speech problems, tingling, tremors, weakness, others Musculoskeletal: denies: back pain, gout, joint pain, joint swelling, muscle pain, muscle stiffness, neck pain, others Integumetry: denies: bruises, change in color, change in hair/nails, dryness, laceration, lesions, lumps, rash, wounds, others Allergic/Immunocompromised: denies: Difficulty Healing, Frequent Infections, Hives, Itching, others Hematologic/Lymphatic: denies: anemia, blood clots, easy bleeding, easy bruising, swollen glands, others Endocrine: denies: excessive hunger, excessive sweating, excessive thirst, excessive urination, flushing, intolerance to cold, intolerance to heat, unexplained weight gain, unexplained weight loss, others Psychiatric: denies: anxiety, bipolar disorder, depression, hopeless, panic disorder, schizophrenia, sleepless, suicidal, others All Other Systems: Reviewed and Negative Physical Exam General Appearance: Moderate Distress, Normal HEENT: Normal ENT Inspection, PERRL/EOMI Neck: Full Range of Motion, Non-Tender, Normal, Normal Inspection Respiratory: Chest Non-Tender, Lungs Clear, No Accessory Muscle Use, No Respiratory Distress, Normal Breath Sounds Cardiovascular: No Edema, No JVD, No Murmur, No Gallop, Normal Peripheral Pulses, Regular Rate/Rhythm Breast Exam: Deferred Gastrointestinal: No Organomegaly, Non Tender, No Pulsatile Mass, Normal Bowel Sounds, Soft Genitalia: Deferred Pelvic: Deferred Rectal: Deferred Extremities: No calf tenderness, Normal capillary refill, Normal inspection, Normal range of motion, Non-tender, No pedal edema Musculoskeletal : Apperance: Normal Neurologic: Alert, roustabout head II-XII nml as Tested, No Motor Deficits, Normal Affect, Normal Mood, No Sensory Deficits Cerebellar Function: NOT DONE Reflexes: NOT DONE Skin: Dry, Normal Color, Warm Peripheral Pulses: 3+ Radial (R), 3+ Radial (L) Lymphatic: No Adenopathy Was a procedure done? Was a procedure done?: No Differential Diagnosis Kidney stone (Female): Musculoskeletal pain, Urinary obstruction, Urolithiasis X-Ray, Labs, Meds, VS Vital Signs Date Time Temp Pulse Resp B/P (MAP) Pulse Ox O2 Delivery O2 Flow Rate FiO2 08/20/24 09:33 98.3 72 18 149/90 (109) 97 Lab Test 08/20/24 13:00 08/20/24 09:58 Range/Units Urine Color Light-yellow Yellow Urine Clarity Clear Clear Urine pH 5.5 5.0-9.0 Urine Specific [place] 1.030 1.001-1.035 Urine Protein Trace H Negative Urine Ketones 1+ H Negative Urine Blood Negative Negative /uL Urine Nitrite Negative Negative Urine Bilirubin Negative Negative Urine Urobilinogen Normal Negative mg/dL Urine Leukocyte Esterase Negative Negative /uL Urine RBC 1 0 - 3 /hpf Urine WBC 3 0 - 3 /hpf Urine Squamous Epithelial Cells Few <5 /hpf Urine Bacteria None seen None Seen /hpf Urine Mucus Few None Seen Urine Glucose 4+ H Normal mg/dL White Blood Count 5.8 4.4-10.8 10^3/uL Red Blood Count 4.83 4.5-5.90 10^6/uL Hemoglobin 15.1 13.5-17.5 g/dL Hematocrit 46.0 41.0-53.0 % Mean Corpuscular Volume 95.3 80.0-100.0 fL Mean Corpuscular Hemoglobin 31.3 28.0-32.0 pg Mean Corpuscular Hemoglobin Concent 32.9 32.0-36.0 g/dL Red Cell Distribution Width 14.5 H 11.8-14.3 % Platelet Count 82 L 140-450 10^3/uL Mean Platelet Volume 9.9 6.9-10.8 fL Neutrophils (%) (Auto) 57.7 37.0-80.0 % Lymphocytes (%) (Auto) 33.4 10.0-50.0 % Monocytes (%) (Auto) 7.2 0.0-12.0 % Eosinophils (%) (Auto) 1.2 0.0-7.0 % Basophils (%) (Auto) 0.5 0.0-2.0 % Neutrophils # (Auto) 3.4 1.6-8.6 10 ^3/uL Lymphocytes # (Auto) 2.0 0.4-5.4 10 ^3/uL Monocytes # (Auto) 0.4 0-1.3 10 ^3/uL Eosinophils # (Auto) 0.1 0-0.8 10 ^3/uL Basophils # (Auto) 0 0-0.2 10 ^3/uL Nucleated Red Blood Cells 0.1 % Sodium Level 142 136-145 mmol/L Potassium Level 4.3 3.5-5.1 mmol/L Chloride Level 110 H 98-107 mmol/L Carbon Dioxide Level 22 20-31 mmol/L Anion Gap 10 5-15 Blood Urea Nitrogen 15 9-23 mg/dL Creatinine 0.86 0.700-1.30 mg/dL Glomerular Filtration Rate Calc 104 >90 mL/min BUN/Creatinine Ratio 17.4 10.0-20.0 Serum Glucose 83 74-106 mg/dL Calcium Level 10.5 H 8.7-10.4 mg/dL Patient alert. Complaining of flank pain. Continues to have pain. Vitals stable. Answering questions. Abdomen is soft. Possible kidney stone. Blood pressure slightly elevated. Reviewed her previous visit. Explained to the patient. Continue cardiac monitoring. Time of 1ST Reevaluation: 10:50 Reevaluation 1ST: Unchanged Patient Education/Counseling: Diagnosis, Treatment Family Education/Counseling: No Family Present Departure 1 Departure Time of Disposition: 11:06 Impression: Primary Impression: Acute abdominal pain Additional Impressions: Uncontrolled diabetes mellitus Qualified Codes: E13.65 - Other specified diabetes mellitus with hyp erglycemia Dehydration Disposition: ADMITTED INPATIENT Admit to: Med Surg Condition: Guarded Critical Care Note Critical Care Time?: No Stability Stability form required: No Heart Score Heart Score: Heart Score Response (Comments) Value History N/A 0 EKG N/A 0 Age N/A 0 Risk Factors N/A 0 Troponin N/A 0 Total 0 I personally scribed for DAVID DOOLEY MD ([email or web address]) on 08/20/24 at 09:52. Electronically submitted by Jayson Luna ([email or web address]). DAVID DOOLEY MD Aug 20, 2024 09:52
[2024-08-20 10:20] LABS: Basophils # (auto) 0 10 ^3/uL (0-0.2); Basophils % (auto) 0.5 % (0.0-2.0); Eosinophils # (auto) 0.1 10 ^3/uL (0-0.8); Eosinophils % (auto) 1.2 % (0.0-7.0); Hemoglobin 15.1 g/dL (13.5-17.5); Lymphocytes % (auto) 33.4 % (10.0-50.0); Mean Corpuscular Hemoglobin 31.3 pg (28.0-32.0); Mean Corpuscular Hgb Conc. 32.9 g/dL (32.0-36.0); Mean Corpuscular Volume 95.3 fL (80.0-100.0); Monocytes # (auto) 0.4 10 ^3/uL (0-1.3); Monocytes % (auto) 7.2 % (0.0-12.0); Neutrophils # (auto) 3.4 10 ^3/uL (1.6-8.6); Neutrophils % (auto) 57.7 % (37.0-80.0); Nucleated Red Blood Cells % 0.1 %; Platelet Count (auto) 82 10^3/uL (140-450); Red Blood Cells 4.83 10^6/uL (4.5-5.90); Red Cell Distribution Width 14.5 % (11.8-14.3); White Blood Cell 5.8 10^3/uL (4.4-10.8)
[2024-08-20 10:28] LABS: Chloride 110 mmol/L (98-107); Potassium 4.3 mmol/L (3.5-5.1); Sodium 142 mmol/L (136-145)
[2024-08-20 10:30] LABS: Anion Gap 10 (5-15); Calcium 10.5 mg/dL (8.7-10.4); Carbon Dioxide 22 mmol/L (20-31); Glucose 83 mg/dL (74-106)
[2024-08-20 10:31] LABS: BUN/Creatinine Ratio 17.4 (10.0-20.0); Blood Urea Nitrogen 15 mg/dL (9-23)
[2024-08-20 13:06] LABS: Urine Bacteria None Seen /hpf (None Seen)
[2024-08-20 13:21] LABS: Urine Blood Negative /uL (Negative); Urine Clarity Clear (Clear); Urine Color Light-Yellow (Yellow); Urine Mucus FEW (None Seen); Urine Protein, UAD TRACE (Negative); Urine Urobilinogen Normal (Negative); Urine WBC 3 /hpf (0 - 3); Urine pH 5.5 (5.0-9.0)
[2024-08-20] MEDS ORDERED: NITROGLYCERIN 0.4 MG SL TAB SL PRN (21:00)
[2024-08-20] MEDS ORDERED: HYDROcodone-ACET 5/325MG TAB PO PRN (21:00)
[2024-08-20] MEDS ORDERED: ONDANSETRON HCL 4 MG/2 ML VIAL IV PRN (21:00)
[2024-08-20] MEDS ORDERED: MORPHINE SULFATE INJ 2 MG/ml SYRG IV PRN ×2 (21:00)
[2024-08-21 01:22] VITALS: PULSE 85; RESP 16; O2SAT 97
--- NOTE | 2024-08-21 01:58 | DVHHPRES ---
History of Present Illness Resident Creating Document: CHELE MOODY RESIDENT History of Present Illness This is a 54-year-old male with past medical history of hypertension, hyperlipidemia, CVA with left-sided weakness, hypothyroidism, type 2 diabetes mellitus, CHF with s/p AICD to the ED with a chief complaint left flank pain for 2 days prior to this admission. According to the patient the pain started the left flank, colicky in nature, 8/10, radiate to the back with no aggravating and relieving factors and not associated with nausea, vomiting , burning sensation or blood in urine. Patient denies chest pain, shortness of breath, dizziness, diaphoresis, sick contact, recent traveling or any change in bowel movement. Past Medical History Hypertension, hyperlipidemia, CVA with left-sided weakness, hypothyroidism, type 2 diabetes mellitus, CHF with s/p AICD Past Surgical History AICD placement Family History: None Past Social History Nonsmoker, nonalcoholic and never tried any drugs Lives with family Review of Systems Constitutional: No: Fever, Chills, Sweats, Weakness, Malaise, Other Eyes: No: Pain, Vision change, Conjunctivae inflammation, Eyelid inflammation, Other, Redness ENT: No: Ear pain, Ear discharge, Nose pain, Nose discharge, Nose congestion, Mouth pain, Mouth swelling, Throat pain, Throat swelling, Other Respiratory: No: Cough, Dry, Shortness of breath, SOB with excertion, Wheezing, Hemoptysis, Pleuritic Pain, Sputum, Wheezing, Other Cardiovascular: No: Chest Pain, Palpitations, Orthopnea, Paroxysmal Noc. Dyspnea, Edema, Lt Headedness, Other Gastrointestinal: Abdominal Pain; No: Nausea, Vomiting, Diarrhea, Constipation, Melena, Hematochezia, Other Genitourinary: No Dysuria, No Frequency, No Incontinence, No Hematuria, No Retention, No Other Musculoskeletal: No: other, neck pain, shoulder pain, arm pain, back pain, hand pain, leg pain, foot pain Skin: No: Rash, Lesions, Jaundice, Bruising, Other Neurological: No: Weakness, Numbness, Incoordination, Change in speech, Confusion, Seizures, Other Allergies: Coded Allergies: NO KNOWN ALLERGIES (Unverified , 07/02/23) Medications Current Medications Medications Dose Ordered Sig/Justina Route Start Time Stop Time Status Last Admin Dose Admin Sodium Chloride 10 ml Q8HR IV 08/20/24 22:00 08/20/24 01:30 10 ML Acetaminophen/ Hydrocodone Bitart 1 tab Q4HP PRN PO 08/20/24 21:00 Ondansetron HCl 4 mg Q4HP PRN IV 08/20/24 21:00 Morphine Sulfate 2 mg Q4HPRN PRN IV 08/20/24 21:00 Nitroglycerin 0.4 mg Q5MINP PRN SL 08/20/24 21:00 Morphine Sulfate 2 mg Q30M PRN IV 08/20/24 21:00 Exam Vital Signs Vital Signs Date Time Temp Pulse Resp B/P (MAP) Pulse Ox O2 Delivery O2 Flow Rate FiO2 08/21/24 01:22 85 16 97 Room Air* 0 21 08/21/24 01:12 97.3 121/75 (90) 97.3 Exam Physical examination: General Appearance: Alert, Oriented X3, Cooperative, No acute distress HEENT: Atraumatic, PERRLA, EOMI, Mucous membrane moist/pink Respiratory: Clear to auscultation, Normal air movement Cardiovascular: Regular rate, Normal S1, Normal S2, No murmurs, no chest wall tenderness Abdominal: Normal bowel sounds, Soft, No tenderness, No hepatospenomegaly, No masses Extremities: No clubbing, No cyanosis, No edema, Normal pulses, No tenderness/swelling Skin: No rashes, No breakdown, No significant lesion Neuro: Limping on the Lt side , Normal speech, Strength at 5/5 X4 ext, Normal tone, Sensation intact, Psych/Mental Status: Mental status NL, Mood NL Labs/Xrays Labs Test 08/20/24 13:00 08/20/24 09:58 Range/Units Urine Color Light-yellow Yellow Urine Clarity Clear Clear Urine pH 5.5 5.0-9.0 Urine Specific [place] 1.030 1.001-1.035 Urine Protein Trace H Negative Urine Ketones 1+ H Negative Urine Blood Negative Negative /uL Urine Nitrite Negative Negative Urine Bilirubin Negative Negative Urine Urobilinogen Normal Negative mg/dL Urine Leukocyte Esterase Negative Negative /uL Urine RBC 1 0 - 3 /hpf Urine WBC 3 0 - 3 /hpf Urine Squamous Epithelial Cells Few <5 /hpf Urine Bacteria None seen None Seen /hpf Urine Mucus Few None Seen Urine Glucose 4+ H Normal mg/dL White Blood Count 5.8 4.4-10.8 10^3/uL Red Blood Count 4.83 4.5-5.90 10^6/uL Hemoglobin 15.1 13.5-17.5 g/dL Hematocrit 46.0 41.0-53.0 % Mean Corpuscular Volume 95.3 80.0-100.0 fL Mean Corpuscular Hemoglobin 31.3 28.0-32.0 pg Mean Corpuscular Hemoglobin Concent 32.9 32.0-36.0 g/dL Red Cell Distribution Width 14.5 H 11.8-14.3 % Platelet Count 82 L 140-450 10^3/uL Mean Platelet Volume 9.9 6.9-10.8 fL Neutrophils (%) (Auto) 57.7 37.0-80.0 % Lymphocytes (%) (Auto) 33.4 10.0-50.0 % Monocytes (%) (Auto) 7.2 0.0-12.0 % Eosinophils (%) (Auto) 1.2 0.0-7.0 % Basophils (%) (Auto) 0.5 0.0-2.0 % Neutrophils # (Auto) 3.4 1.6-8.6 10 ^3/uL Lymphocytes # (Auto) 2.0 0.4-5.4 10 ^3/uL Monocytes # (Auto) 0.4 0-1.3 10 ^3/uL Eosinophils # (Auto) 0.1 0-0.8 10 ^3/uL Basophils # (Auto) 0 0-0.2 10 ^3/uL Nucleated Red Blood Cells 0.1 % Sodium Level 142 136-145 mmol/L Potassium Level 4.3 3.5-5.1 mmol/L Chloride Level 110 H 98-107 mmol/L Carbon Dioxide Level 22 20-31 mmol/L Anion Gap 10 5-15 Blood Urea Nitrogen 15 9-23 mg/dL Creatinine 0.86 0.700-1.30 mg/dL Glomerular Filtration Rate Calc 104 >90 mL/min BUN/Creatinine Ratio 17.4 10.0-20.0 Serum Glucose 83 74-106 mg/dL Calcium Level 10.5 H 8.7-10.4 mg/dL Assessment/Plan Assessment/Plan Assessment and plan: # Left flank pain, rule out renal stone - Ordered CT abdomen pelvis with contrast. - UA revealed normal study no hematuria. - IV morphine 2 mg q.4 p.r.n. - IV ondansetron 4 mg q.4 p.r.n. # Chronic systolic heart failure - Ordered BNP, chest x-ray - Echo on 01/29 revealed ejection fraction 15% with grade 1 diastolic abnormality - Continue Entresto 24/26 mg 1 tab b.i.d and carvedilol 6.25 mg p.o. b.i.d. # History of CVA with left-sided weakness - History of 3 CVA in 1.5 year - Continue aspirin 81 mg p.o. daily, atorvastatin 80 mg at HS and clopidogrel 75 mg p.o. daily # Hypertensive heart disease - Carvedilol 6.25 mg p.o. b.i.d. # Chronic hypothyroidism - Levothyroxine 75 mcg p.o. daily # Type 2 diabetes mellitus - Mild sliding scale of insulin Goal of care discussed with the patient for more than 20 minutes full code Plan of treatment discussed with Dr. Still Plan discussed with: Patient, Other My Orders Orders - CHELE MOODY RESIDENT Procedure Category Date Status Time Admit ADMIT 08/20/24 Transmitted 20:57 Code Status CODE 08/20/24 Transmitted 20:57 Sodium Chloride Lock PHA 08/20/24 In Process (Saline Lock Ns) 22:00 Hydrocodone-Acet PHA 08/20/24 In Process 5/325mg Tab ([place] 21:00 Ondansetron Hcl PHA 08/20/24 In Process (Zofran) 21:00 Complete Blood Count LAB 08/21/24 Logged 04:00 Comprehensive LAB 08/21/24 Logged Metabolic Panel 04:00 Npo (Nothing By DIET 08/21/24 Transmitted Mouth) Diet Breakfast Morphine Sulfate PHA 08/20/24 In Process Injection 21:00 Nitroglycerin PHA 08/20/24 In Process Sublingual (Ntrostat 21:00 Morphine Sulfate PHA 08/20/24 In Process Injection 21:00 Oxygen By Nasal RT 08/20/24 Transmitted Cannula 20:57 Stat Ekg For Chest JB 08/20/24 In Process Pain 20:57 Notify Of Changes [facility] 08/20/24 In Process From Base 20:57 Dough Catcher For [facility] 08/20/24 In Process 24 Hours 20:57 Emergency Dysrhythmia [facility] 08/20/24 In Process Protocol 20:57 Rhythm Strips Once [facility] 08/20/24 In Process Every Shift 20:[address] Ct [address] W [address] 08/21/24 Logged Con-Oral & Iv 01:46 Hemoglobin A1c LAB 08/21/24 Logged 01:48 Thyroid Stimulating LAB 08/21/24 Logged Hormone 01:48 Vitamin B12 LAB 08/21/24 Logged 01:48 Vitamin D, 25-Hydroxy LAB 08/21/24 Logged 01:48 Date of Service: Aug 20, 2024 Billing Provider: OTIS STILL MD Common Visit Codes: [id number] INP/OBS CARE (HIGH) CHELE MOODY RESIDENT Aug 21, 2024 01:58 OTIS STILL MD Aug 21, 2024 13:40
[2024-08-21] MEDS ORDERED: SODIUM CHLORIDE 0.9% 1,000 ML IV SCH (02:00)
[2024-08-21] MEDS ORDERED: DEXTROSE (50%) 50ML SYRG IV PRN (02:30)
[2024-08-21] MEDS: IOHEXOL 300 MG/ML 100ML BOTTLE IJ ONE (03:13)
[2024-08-21] MEDS: GASTROGRAFIN 30 ML SOL ONE (03:15)
--- NOTE | 2024-08-21 03:58 | DVH ---
CHEST RADIOGRAPH Indication:shortness of breath Technique: Single frontal view of the chest was obtained Comparison: XY CHEST PORTABLE on DOS: 02/04/24, XY CHEST PORTABLE on DOS: 07/16/23, XY CHEST PORTABLE o n DOS: 07/05/23, XY CHEST XRAY 1 VIEW on DOS: 02/07/23, TRANSESOPH ECHOCARDIOGRAM on DOS: 09/08/22, XY CH EST TWO VIEWS ROUTINE on DOS: 02/06/24 FINDINGS: Lines and Tubes: Left-sided cardiac AICD, stable. Lungs: No focal consolidation. Pleura: No effusion. No pneumothorax. Cardiomediastinal contours: Cardiomegaly with mild chf. Bones: No acute osseous abnormality. IMPRESSION: 1. Cardiomegaly with mild chf. Leads are in adequate positioning.
--- NOTE | 2024-08-21 04:45 | DVH ---
Exam: CT CT ABD PELVIS W CON-ORAL IV History: Lt flank pain Comparison Study: CT CHEST/AB/PL W CON- IV ONLY on DOS: 09/01/22 Technique: Multidetector spiral CT of the abdomen was performed from lung bases to pubic symphysis. Imaging was performed without IV contrast. Axial, coronal and sagittal multiplanar reformats were ob tained from the axial data set by the technologist. Radiation Dose : 1. Abdomen/Pelvis: CTDIvol 15 mGy, DLP 1000 mGy*cm. Findings: Evaluation of solid organs is limited due to lack of intravenous contrast use. Lung Bases: Cardiomegaly. Liver: The liver is normal in size. No focal lesions. Gallbladder and Biliary Tree: Unremarkable Spleen: Unremarkable Pancreas: The pancreas is grossly normal in appearance. Adrenal Glands: Unremarkable Kidneys: Kidneys are grossly normal without calculi or hydronephrosis. Bladder: Grossly unremarkable for degree of distention. Bowel: The stomach is grossly normal in appearance. Small bowel and colon are normal in caliber and d istribution. The appendix is not visualized; however, no secondary findings of acute appendicitis id entified. Ascites: Absent Lymphadenopathy: No mesenteric, retroperitoneal or periportal lymphadenopathy. Abdominal Wall and Mesentery: Unremarkable. Vasculature: The visualized abdominal aorta is normal in size and caliber. Evaluation of abdominal a nd pelvic vessels is limited due to lack of intravenous contrast. Pelvic Organs: Unremarkable Musculoskeletal: No aggressive focal bony lesions, acute fractures or dislocation. IMPRESSION: No acute abdominal or pelvic findings. Radiation optimization: All CT scans at this facility use at least one of these dose optimization teresita hniques: automated exposure control mA and/or kV adjustment per patient size (includes targeted exam s where dose is matched to clinical indication) or iterative reconstruction.
[2024-08-21] MEDS: InsuLIN REG 1unit/0.01ml Soln (100units/ml) SC SCH (05:53)
[2024-08-21] MEDS: LEVOTHYROXINE SODIUM 25 MCG TAB PO SCH (06:07)
[2024-08-21] MEDS: ACCU-CHEK COMFORT CURVE STRIP VI SCH (06:08)
[2024-08-21 07:20] LABS: Basophils # (auto) 0 10 ^3/uL (0-0.2); Basophils % (auto) 0.7 % (0.0-2.0); Eosinophils # (auto) 0.1 10 ^3/uL (0-0.8); Eosinophils % (auto) 1.9 % (0.0-7.0); Hemoglobin 13.5 g/dL (13.5-17.5); Lymphocytes # (auto) 1.9 10 ^3/uL (0.4-5.4); Lymphocytes % (auto) 40.1 % (10.0-50.0); Mean Corpuscular Hemoglobin 31.1 pg (28.0-32.0); Mean Corpuscular Hgb Conc. 33.7 g/dL (32.0-36.0); Mean Corpuscular Volume 92.4 fL (80.0-100.0); Monocytes # (auto) 0.5 10 ^3/uL (0-1.3); Monocytes % (auto) 10.9 % (0.0-12.0); Neutrophils # (auto) 2.3 10 ^3/uL (1.6-8.6); Neutrophils % (auto) 46.4 % (37.0-80.0); Nucleated Red Blood Cells % 0.1 %; Platelet Count (auto) 193 10^3/uL (140-450); Red Blood Cells 4.33 10^6/uL (4.5-5.90); Red Cell Distribution Width 14.3 % (11.8-14.3); White Blood Cell 4.9 10^3/uL (4.4-10.8)
[2024-08-21 07:36] LABS: Alanine Aminotransferase 10 U/L (7-40); Albumin 4.3 g/dL (3.2-4.8); Alkaline Phosphatase 43 U/L (46-116); Anion Gap 12 (5-15); Aspartate Aminotransferase 12 U/L (13-40); BUN/Creatinine Ratio 25.3 (10.0-20.0); Blood Urea Nitrogen 19 mg/dL (9-23); Carbon Dioxide 24 mmol/L (20-31); Chloride 105 mmol/L (98-107); Glucose 80 mg/dL (74-106); Potassium 3.6 mmol/L (3.5-5.1); Sodium 141 mmol/L (136-145)
[2024-08-21 07:37] LABS: Bilirubin, Total 0.7 mg/dL (0.2-1.0); Total Protein 6.9 g/dL (5.7-8.2)
[2024-08-21 08:30] VITALS: PULSE 72; RESP 14; O2SAT 94
--- NOTE | 2024-08-21 08:53 | DVHDSRES ---
Discharge Summary Date of Admission Resident Creating Document: KAMAR CORDOVA RESIDENT Aug 20, 2024 at 20:57 Date of Discharge: Aug 21, 2024 Admitting Diagnosis Right flank pain. Labs/Diagnostic Data: Laboratory Results Test 08/21/24 06:15 08/21/24 05:49 08/20/24 13:00 White Blood Count 4.9 10^3/uL (4.4-10.8) Red Blood Count 4.33 10^6/uL (4.5-5.90) Hemoglobin 13.5 g/dL (13.5-17.5) Hematocrit 40.0 % (41.0-53.0) Mean Corpuscular Volume 92.4 fL (80.0-100.0) Mean Corpuscular Hemoglobin 31.1 pg (28.0-32.0) Mean Corpuscular Hemoglobin Concent 33.7 g/dL (32.0-36.0) Red Cell Distribution Width 14.3 % (11.8-14.3) Platelet Count 193 10^3/uL (140-450) Mean Platelet Volume 9.1 fL (6.9-10.8) Neutrophils (%) (Auto) 46.4 % (37.0-80.0) Lymphocytes (%) (Auto) 40.1 % (10.0-50.0) Monocytes (%) (Auto) 10.9 % (0.0-12.0) Eosinophils (%) (Auto) 1.9 % (0.0-7.0) Basophils (%) (Auto) 0.7 % (0.0-2.0) Neutrophils # (Auto) 2.3 10 ^3/uL (1.6-8.6) Lymphocytes # (Auto) 1.9 10 ^3/uL (0.4-5.4) Monocytes # (Auto) 0.5 10 ^3/uL (0-1.3) Eosinophils # (Auto) 0.1 10 ^3/uL (0-0.8) Basophils # (Auto) 0 10 ^3/uL (0-0.2) Nucleated Red Blood Cells 0.1 % Sodium Level 141 mmol/L (136-145) Potassium Level 3.6 mmol/L (3.5-5.1) Chloride Level 105 mmol/L (98-107) Carbon Dioxide Level 24 mmol/L (20-31) Anion Gap 12 (5-15) Blood Urea Nitrogen 19 mg/dL (9-23) Creatinine 0.75 mg/dL (0.700-1.30) Glomerular Filtration Rate Calc 109 mL/min (>90) BUN/Creatinine Ratio 25.3 (10.0-20.0) Serum Glucose 80 mg/dL (74-106) Hemoglobin A1c 5.4 % A1C (<5.7) Calcium Level 10.0 mg/dL (8.7-10.4) Total Bilirubin 0.7 mg/dL (0.2-1.0) Aspartate Amino Transferase (AST) 12 U/L (13-40) Alanine Aminotransferase (ALT) 10 U/L (7-40) Alkaline Phosphatase 43 U/L (46-116) B-Type Natriuretic Peptide 27.65 pg/mL (0-100) Total Protein 6.9 g/dL (5.7-8.2) Albumin 4.3 g/dL (3.2-4.8) Vitamin B12 Level 2377 pg/mL (211-911) Vitamin D 25-Hydroxy 88.5 ng/mL (30.0-100) Thyroid Stimulating Hormone (TSH) 5.34 uIU/mL (0.55-4.78) POC Glucose 82 mg/dl (70-106) Urine Color Light-yellow (Yellow) Urine Clarity Clear (Clear) Urine pH 5.5 (5.0-9.0) Urine Specific [place] 1.030 (1.001-1.035) Urine Protein Trace (Negative) Urine Ketones 1+ (Negative) Urine Blood Negative /uL (Negative) Urine Nitrite Negative (Negative) Urine Bilirubin Negative (Negative) Urine Urobilinogen Normal mg/dL (Negative) Urine Leukocyte Esterase Negative /uL (Negative) Urine RBC 1 /hpf (0 - 3) Urine WBC 3 /hpf (0 - 3) Urine Squamous Epithelial Cells Few /hpf (<5) Urine Bacteria None seen /hpf (None Seen) Urine Mucus Few (None Seen) Urine Glucose 4+ mg/dL (Normal) Other Laboratory Tests 08/21/24 06:15 Brief Hx & Hospital Course: Hospital Course: Mr. 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 The pain was Dull, localized, worsening with movement and was not associated with nausea, vomiting, urinary symptoms, chest pain, shortness of breath, dizziness, diaphoresis, sick contacts, recent travel, fever, chills or changes in bowel movements. He is a nonsmoker, nonalcoholic, and has no history of drug use, living with his family. Patient needs to follow up with the primary care physician but in recent times has not followed with PCP and looking for care establishment. # Musculoskeletal right back pain, localized, likely lower trapezial strain: Secondary to heavy oblique muscular trauma secondary to construction work with recent heavy swinging motion. Status post pain management, mildly reproducible pain well-controlled. As needed 5% local lidocaine patch/salonpas patch Q 12 hour, as needed along with 650 Q 8 hour as needed Tylenol. Patient would like to obtain them [id number]. reviewed CT abdomen pelvis, UTI, renal, or any other GI pathologies unremarkable. Negative for CV angle tenderness or paraspinal and spinal tenderness. # Essential hypertension: Does not check at home but blood pressure moderately controlled. Ursa blood pressure 130/80 or below given known diabetic hypertensive. # Known CAD: Previously followed with Cardiology , multiple vessels noted to have calcification, abdominal aortic calcification noted. # Known heart failure with reduced ejection fraction 15%: At presumably patient looks euvolemic, on GDM T, oral Lasix, breathing comfortably in the room air. BNP unremarkable. Continue oral Lasix 20 mg, Entresto 01/25/2026, Maddie brought in 5 mg b.i.d., Jardiance 10 mg daily, carvedilol 6.25. we will closely with Cardiology outpatient. # Previous history of diabetes mellitus type 2: insulin dependent,Presumably well-controlled, HbA1c 5.4, no need of SSI. Lifestyle modification, diet controlled. presumably on insulin 20 subcutaneous glargine, metformin, Jardiance. Given 2 diet-controlled HbA1c patient needs to follow up closely with PCP/ patient information coordinator for downgrading insulin regimen. # Hypothyroidism: TSH 5.34, free T3-T4 WNL. Continue home thyroid dose. # Recent history of stroke With left-sided residual hilario weakness: Status post extensive physical therapy, stable gait but still patient is more dependent on the right side, posture stable yet unbalanced. Continue atorvastatin 80, aspirin 81, follow with Neurology as needed, needs likely more physical therapy. Clinical neurological examination otherwise unremarkable. # Vitamin-D deficiency: continue supplements. # Status post AICD: Device in place, no gross abnormality noted, EKG, telemetry unremarkable. Denies any chest pain, shortness of breath, PND, orthopnea, leg swelling, signs of AICD shocks. # Chronic low back pain: Patient on cyclobenzaprine 10 mg Q 8 p.r.n., ibuprofen 600 mg tablet, Yet to establish care with new PCP. Patient is discharged to discharge Clinic with preferably Lebanese-speaking resident within 1-2 weeks. Further planning and care to be checked. Patient is particularly interested in checking testosterone level, that can be done outpatient mcnamara. Case discussed with Dr. Nascimento. Code status: Full code. Complex patient care discussion needed total 39 minutes. Discharge planning needed total 45 minutes of discussion. Patient was interviewed and counseled with the help of bedside oil spot washer. Consults/Reason for consult None Operations or Procedures [place] [address] Ph: [phone] DIAGNOSTIC IMAGING Diagnostic Imaging Report : [id number] Signed PATIENT: ROSSI FORBES ACCT: [id number] UNIT: [id number] : 1970 LOC: TELE ROOM / BED: [address] [place] [address] AGE / SEX: 54 / M ADM STATUS: ADM IN SERVICE 0204 ORDERING PHYSICIAN: CHELE MOODY RESIDENT PROCEDURE(s): CXRP - CHEST PORTABLE REASON: shortness of breath ORDER NUMBER(s): [id number], ACCESSION NUMBER(s): [id number] CHEST RADIOGRAPH Indication:shortness of breath Technique: Single frontal view of the chest was obtained Comparison: XY CHEST PORTABLE on DOS: 02/04/24, XY CHEST PORTABLE on DOS: 07/16/23, XY CHEST PORTABLE on DOS: 07/05/23, XY CHEST XRAY 1 VIEW on DOS: 02/07/23, TRANSESOPH ECHOCARDIOGRAM on DOS: 09/08/22, XY CHEST TWO VIEWS ROUTINE on DOS: 02/06/24 FINDINGS: Lines and Tubes: Left-sided cardiac AICD, stable. Lungs: No focal consolidation. Pleura: No effusion. No pneumothorax. Cardiomediastinal contours: Cardiomegaly with mild chf. Bones: No acute osseous abnormality. IMPRESSION: 1. Cardiomegaly with mild chf. Leads are in adequate positioning. ATED BY: ISAURA DIAZ MD DICTATED DATE/TIME: 08/21/24354 SIGNED BY: ISAURA DIAZ MD SIGNED DATE/TIME: 08/21/24354 CC: [place] [address] Ph: [phone] DIAGNOSTIC IMAGING Diagnostic Imaging Report : [id number] Signed PATIENT: ROSSI FORBES ACCT: [id number] UNIT: [id number] : 1970 LOC: TELE ROOM / BED: [address] [place] [address] AGE / SEX: 54 / M ADM STATUS: ADM IN SERVICE 5 ORDERING PHYSICIAN: CHELE MOODY RESIDENT PROCEDURE(s): ABPLC - CT ABD PELVIS W CON-ORAL & IV REASON: Lt flank pain ORDER NUMBER(s): [id number], ACCESSION NUMBER(s): [id number] Exam: CT CT ABD PELVIS W CON-ORAL IV History: Lt flank pain Comparison Study: CT CHEST/AB/PL W CON- IV ONLY on DOS: 09/01/22 Technique: Multidetector spiral CT of the abdomen was performed from lung bases to pubic symphysis. Imaging was performed without IV contrast. Axial, coronal and sagittal multiplanar reformats were obtained from the axial data set by the technologist. Radiation Dose : 1. Abdomen/Pelvis: CTDIvol 15 mGy, DLP 1000 mGy*cm. Findings: Evaluation of solid organs is limited due to lack of intravenous contrast use. Lung Bases: Cardiomegaly. Liver: The liver is normal in size. No focal lesions. Gallbladder and Biliary Tree: Unremarkable Spleen: Unremarkable Pancreas: The pancreas is grossly normal in appearance. Adrenal Glands: Unremarkable Kidneys: Kidneys are grossly normal without calculi or hydronephrosis. Bladder: Grossly unremarkable for degree of distention. Bowel: The stomach is grossly normal in appearance. Small bowel and colon are normal in caliber and distribution. The appendix is not visualized; however, no secondary findings of acute appendicitis identified. Ascites: Absent Lymphadenopathy: No mesenteric, retroperitoneal or periportal lymphadenopathy. Abdominal Wall and Mesentery: Unremarkable. Vasculature: The visualized abdominal aorta is normal in size and caliber. Evaluation of abdominal and pelvic vessels is limited due to lack of intravenous contrast. Pelvic Organs: Unremarkable Musculoskeletal: No aggressive focal bony lesions, acute fractures or dislocation. IMPRESSION: No acute abdominal or pelvic findings. Radiation optimization: All CT scans at this facility use at least one of these dose optimization techniques: automated exposure control mA and/or kV adjustment per patient size (includes targeted exams where dose is matched to clinical indication) or iterative reconstruction. ATED BY: KY DE MD DICTATED DATE/TIME: 08/21/24440 SIGNED BY: KY DE MD SIGNED DATE/TIME: 08/21/24440 CC: Eleven per Condition at Discharge: Fair Final Diagnosis/Problems List # Musculoskeletal right back pain, localized, likely lower trapezial strain # Essential hypertension # Known CAD # Known heart failure with reduced ejection fraction 15% # Previous history of diabetes mellitus type 2 # Hypothyroidism # Recent history of stroke With left-sided residual hilario weakness # Vitamin-D deficiency # Status post AICD # Chronic low back pain Discharge Disposition: Home Discharge Instruct/Medications Diet: Cardiac 2g Na,low cholest Activity: No Restrictions, As Tolerated Follow Up/Referral: Follow up with the discharge Clinic. Establish care with a primary care physician. Follow up with your Cardiology, as needed with Neurology. Possibly we will be helped with extensive physical therapy. Medications: MAR Patch 5% lidocaine and as needed Tylenol. Discharge Statement: "Patient was advised to return to the ER or call 911 if any headaches, dizziness, shortness of breath, chest pain, abdominal pain, bleeding, fevers, or worsening of medical condition. Patient was counseled about treatment plan, medications, possible side effects, patientverbalized understanding. All questions were answered to the best of my ability. This discharge took greater then 30 minutes in planning, reviewing documentation, counseling the patient, and discussing with other team members." Laboratory Results Laboratory Tests 11/14/24 06:15 Chemistry Test 08/21/24 06:15 Albumin 4.3 g/dL (3.2-4.8) Calcium Level 10.0 mg/dL (8.7-10.4) Total Protein 6.9 g/dL (5.7-8.2) Cardiac Markers Test 08/21/24 06:15 B-Type Natriuretic Peptide 27.65 pg/mL (0-100) LFT Test 08/21/24 06:15 Alanine Aminotransferase (ALT) 10 U/L (7-40) Alkaline Phosphatase 43 U/L (46-116) L Aspartate Amino Transferase (AST) 12 U/L (13-40) L Total Bilirubin 0.7 mg/dL (0.2-1.0) HgA1c, TSH Test 08/21/24 06:15 Hemoglobin A1c 5.4 % A1C (<5.7) Thyroid Stimulating Hormone (TSH) 5.34 uIU/mL (0.55-4.78) H Urinalysis Test 08/20/24 13:00 Urine Color Light-yellow (Yellow) Urine Clarity Clear (Clear) Urine pH 5.5 (5.0-9.0) Urine Specific [place] 1.030 (1.001-1.035) Urine Protein Trace (Negative) H Urine Ketones 1+ (Negative) H Urine Blood Negative /uL (Negative) Urine Nitrite Negative (Negative) Urine Bilirubin Negative (Negative) Urine Urobilinogen Normal mg/dL (Negative) Urine Leukocyte Esterase Negative /uL (Negative) Urine RBC 1 /hpf (0 - 3) Urine WBC 3 /hpf (0 - 3) Urine Squamous Epithelial Cells Few /hpf (<5) Urine Bacteria None seen /hpf (None Seen) Urine Mucus Few (None Seen) Urine Glucose 4+ mg/dL (Normal) H Labs and/or images reviewed: Labs reviewed by me, Image(s) reviewed by me Physical Exam General Appearance: No Apparent Distress HEENT: normal ENT inspection, TMs normal, pharynx normal Neck: Normal Inspection, Non-Tender, Full Range of Motion, Supple Respiratory: chest non-tender, lungs clear, normal breath sounds, no respiratory distress, no accessory muscle use, respiratory distress Cardiovascular: normal peripheral pulses, regular rate, rhythm, no edema, no gallop, no JVD, no murmur Gastrointestinal: normal bowel sounds, non tender, soft, no organomegaly, no pulsatile mass Pelvic: Deferred Rectal: deferred Back: normal inspection, no CVA tenderness, no vertebral tenderness Extremities: normal range of motion, non-tender, normal inspection, no pedal edema, no calf tenderness Neurologic/Psychiatric: heel shaper II-XII nml as tested (Patient has a residual left- sided facial weakness,), alert, normal mood/affect, oriented x 3, abnormal gait, facial droop, motor weakness Skin: normal color, warm/dry Lymphatic: no adenopathy Comments Left-sided hemifacial weakness, more prominent with muscles of mastication, left-sided weakness more prominent on the left lower extremity 4/5, upper extremity strength more preserved. No sensory deficit. No other focal neurological deficits, apparently this is the patient's baseline from the past 9 months. ASSESSMENT ASSESSMENT Assessment Date of Service: Aug 21, 2024 Billing Provider: MANAN NASCIMENTO MD Common Visit Codes: 15009-YVC/OBS DISCH DAY >30min Coding Comment Comment Attending Attestation I saw and evaluated the patient. I reviewed the residents note and agree with findings and plan as documented in the residents note except as documented below. KAMAR CORDOVA RESIDENT Aug 21, 2024 08:53 MANAN NASCIMENTO MD Aug 21, 2024 19:30
[2024-08-21] MEDS: CLOPIDOGREL BISULFATE 75 MG TAB PO SCH (09:15)
[2024-08-21] MEDS: SACUBITRIL-VALSARTAN 24mg/26mg TAB PO SCH (09:16)
[2024-08-21] MEDS: CARVEDILOL 3.125 MG TAB PO SCH (09:17)
[2024-08-21] MEDS: ASPirin-EC 81 mg tab PO SCH (09:17)
[2024-08-21 09:26] LABS: Amphetamine Screen, Urine Neg (NEGATIVE); Barbiturate Scree,Urine Neg (NEGATIVE); Benzodiazephine Screen, Urine Neg (NEGATIVE); Cannabinoid Screen, Urine Neg (NEGATIVE); Cocaine Screen, Urine Neg (NEGATIVE); Opiate Scree,Urine Neg (NEGATIVE); Phencyclidine Screen, Urine Neg (NEGATIVE)
[2024-08-21] MEDS: IVABRADINE 5 MG TAB PO SCH (09:31)
[2024-08-21 11:19] LABS: Free T4 (Free Thyroxine) 1.21 ng/dL (0.89-1.76)
[2024-08-21 11:20] LABS: Free T3 2.54 pg/mL (2.3-4.2)
[2024-08-21 15:26] VITALS: BP 129/86; PULSE 79; RESP 16; TEMP 97.6; O2SAT 96
[2024-08-21] MEDS ORDERED: ATORVASTATIN 20 MG TAB PO SCH (22:00)
== END 2024-08-21 16:16 | disposition home or self-care (01) | DRG 351 ==
LOC: ER 09:10 → EDBD 09:10 → TELE 20:57
PROVIDERS: ADMIT Student in an Organized Health Care Education/Training Program; ATTEND Emergency Medicine
DX: S39.012A Strain of muscle, fascia and tendon of lower back, initial encounter (principal); I69.354 Hemiplegia and hemiparesis following cerebral infarction affecting left non-dominant side; E03.9 Hypothyroidism, unspecified; E11.65 Type 2 diabetes mellitus with hyperglycemia; I10 Essential (primary) hypertension; E86.0 Dehydration; E78.5 Hyperlipidemia, unspecified; X58.XXXA Exposure to other specified factors, initial encounter; I25.10 Atherosclerotic heart disease of native coronary artery without angina pectoris; E55.9 Vitamin D deficiency, unspecified; Z79.899 Other long term (current) drug therapy; Z79.82 Long term (current) use of aspirin; Z79.4 Long term (current) use of insulin; Y93.89 Activity, other specified; Y92.89 Other specified places as the place of occurrence of the external cause; Y99.8 Other external cause status; Z95.810 Presence of automatic (implantable) cardiac defibrillator
CPT/HCPCS: 36415; 71045; 74177; 80048; 80053; 80307; 81001; 82306; 82607; 82962; 83036; 83880; 84439; 84443; 84481; 85025; G0378; J1815

== ENCOUNTER 2025-06-23 07:51 | Outpatient (CLI) | payer MEDICAID | END 2025-06-23 17:00 | disposition home or self-care (01) | LOC: Rad HDHVI 07:51 | PROVIDERS: ATTEND Internal Medicine Cardiovascular Disease | DX: I34.0 Nonrheumatic mitral (valve) insufficiency (principal); I50.23 Acute on chronic systolic (congestive) heart failure | CPT/HCPCS: 93306 ==

== ENCOUNTER 2025-07-07 08:18 | Outpatient (CLI) | payer MEDICAID ==
[~2025-07-07] VITALS: Ht 167.6 cm; Wt 86.6 kg
[2025-07-07] MEDS ORDERED: ADENOSINE 73 MG in GIVE UN-DILUTED 0 ML IV ONE (08:45)
[2025-07-07] MEDS ORDERED: ADENOSINE 90 MG/30 ML INJ IV ONE (08:59)
== END 2025-07-07 17:00 | disposition home or self-care (01) ==
LOC: Rad HDHVI 08:18
PROVIDERS: ATTEND Internal Medicine Cardiovascular Disease
DX: I49.3 Ventricular premature depolarization (principal); I49.1 Atrial premature depolarization; R06.02 Shortness of breath; I11.0 Hypertensive heart disease with heart failure; I50.23 Acute on chronic systolic (congestive) heart failure; I63.9 Cerebral infarction, unspecified; I42.0 Dilated cardiomyopathy; I25.5 Ischemic cardiomyopathy; I25.2 Old myocardial infarction; R42 Dizziness and giddiness; Z95.810 Presence of automatic (implantable) cardiac defibrillator
CPT/HCPCS: 78452; 93017; A9500; J0153

== ENCOUNTER 2025-09-25 22:38 | Inpatient (IN) | payer MEDICAID ==
[~2025-09-25] VITALS: Ht 182.9 cm; Wt 89.4 kg
--- NOTE | 2025-09-25 23:07 | ECG ---
[facility] Test Date: 2025-09-25 Test Time: 23:03:13 Pat Name: ROSSI MURILLO Department: [facility] ED Room: 0296T Gender: M Field Operator: HARRISON : 1970 Requested By: MELITON AARON Order Number: [id number] Reading MD: Manjinder Quezada Measurements Intervals [place] Rate: 78 P: 0 DE: 0 QRS: -86 QRSD: 181 T: 31 QT: 409 QTc: 466 Interpretive Statements Afib/flut and V-paced complexes No further analysis attempted due to paced rhythm Electronically Signed On 09-28-2025 15:26:01 PST by Manjinder Quezada Please click the below link to view image of tracing.
--- NOTE | 2025-09-25 23:24 | ED.PDOC ---
HPI (NEURO) HPI Comments Tom; HPI: Poor Historian. 55-year-old male brought in by ambulance from home for evaluation of right sided headache without any other associated symptoms. Patient took some Tylenol at home. By the time of the patient's got here his headache has completely resolved. His vital signs are stable. Past Medical History: Hypertension, CVA, left-sided deficit, atrial fibrillation, pacemaker, diabetes Past Surgical History: REVIEW OF SYSTEMS: CONSTITUTIONAL: Denies acute: fever, diaphoresis, chills, generalized weakness. HEAD: Denies acute: , photophobia Eyes: Denies acute: Double vision, vision loss, eye pain, eye discharge. EARS: Denies acute: tinnitus, hearing loss, ear discharge, ear pain, THROAT: Denies acute: sore throat, swelling, difficulty swallowing , pain with swallowing, change in voice. NECK: Denies acute: neck pain, neck swelling, stiff neck. HEART: Denies acute : chest pain, palpitations, LUNGS: Denies acute: SOB, wheezing, cough, hemoptysis ABDOMEN: Denies acute: abdominal pain, Nausea, Vomiting, diarrhea, melena , hematemesis, hematochezia SKIN: Denies acute: rash, redness, lesions, itchiness. EXTREMITIES: Denies acute: calf pain, numbness, tingling, weakness, denies pain in extremity. Denies acute: Low back pain. Neuro: Denies acute: focal neurological deficit, motor or sensory focal neurological deficit, tremors, seizure like activity, confusion, dizziness, change in mental status, loss of bowel or bladder function, cauda equina like symptoms. : Denies acute: dysuria, hematuria, flank pain, increase in urinary frequency. PSYCH: Denies acute: hallucination, suicidal ideation, homicidal ideation. PHYSICAL EXAM: General: --no------acute distress, awake and alert. All symptoms have resolved prior to my evaluation Head: normocephalic, atraumatic. No raccoon's eyes, no cutler sign. Neck: supple, trachea is midline, no swelling. Throat: Normal phonation. Eyes:, no erythema, no purulent discharge, no proptosis, no icterus. Heart: regular rate, regular rhythm, no significant murmur appreciated. Lungs: no apparent respiratory distress, Able to speak in full sentences. No wheezing, no rhonchi, no crackles. No stridors Clear to auscultation bilaterally. Abdomen: non tender to palpation, non distended, soft, no guarding, no rebound, + bowel sounds. Neuro: Awake, Alert, oriented to name, self, situation, follows commands GCS=15. Speech is normal. Patient has left-sided deficits from a previous stroke. Patient has a cane with him. Skin: no petechia, no purpura, no cyanosis, non-pale, not jaundice. Lower extremities: --no - Pitting edema no deformity, no focal swelling, no calf TTP. Makes eye contact. moves all four extremities. Face: no apparent facial droop. ED COURSE: DISCLAIMER: This medical document was created using an electronic medical record system with voice recognition software and computerized dictation system. Although this document has been carefully reviewed, there might still be some phonetic and typographical errors. Occasional wrong-word or "sound-alike" substitutions may have occurred due to the inherent limitations of voice recognition software. These areas are purely typographical due to imperfections of the software programs and do not reflect any compromise in the patient's medical care. Please read the chart carefully and recognize, using context, where these substitutions have occurred. Chief Complaint: Headache Time Seen by MD: 22:51 Reviewed Notes: Allergies Information Source: Patient, Emergency Med Personnel Mode of Arrival: EMS X-Ray, Labs, Meds, VS Vital Signs Date Time Temp Pulse Resp B/P (MAP) Pulse Ox O2 Delivery O2 Flow Rate FiO2 09/25/25 23:03 78 09/25/25 22:38 98.5 69 16 161/90 96 98.5 Lab Test 09/26/25 00:24 09/25/25 23:29 Range/Units Troponin I High Sensitivity Pending 94 *H </=54 ng/L White Blood Count 7.4 4.4-10.8 10^3/uL Red Blood Count 4.59 4.5-5.90 10^6/uL Hemoglobin 13.9 13.5-17.5 g/dL Hematocrit 41.6 41.0-53.0 % Mean Corpuscular Volume 90.7 80.0-100.0 fL Mean Corpuscular Hemoglobin 30.2 28.0-32.0 pg Mean Corpuscular Hemoglobin Concent 33.3 32.0-36.0 g/dL Red Cell Distribution Width 14.2 11.8-14.3 % Platelet Count 195 140-450 10^3/uL Mean Platelet Volume 9.0 6.9-10.8 fL Neutrophils (%) (Auto) 63.2 37.0-80.0 % Lymphocytes (%) (Auto) 27.0 10.0-50.0 % Monocytes (%) (Auto) 7.8 0.0-12.0 % Eosinophils (%) (Auto) 1.2 0.0-7.0 % Basophils (%) (Auto) 0.8 0.0-2.0 % Neutrophils # (Auto) 4.7 1.6-8.6 10 ^3/uL Lymphocytes # (Auto) 2.0 0.4-5.4 10 ^3/uL Monocytes # (Auto) 0.6 0-1.3 10 ^3/uL Eosinophils # (Auto) 0.1 0-0.8 10 ^3/uL Basophils # (Auto) 0.1 0-0.2 10 ^3/uL Nucleated Red Blood Cells 0.2 % Sodium Level 140 136-145 mmol/L Potassium Level 3.9 3.5-5.1 mmol/L Chloride Level 106 98-107 mmol/L Carbon Dioxide Level 25 20-31 mmol/L Anion Gap 9 5-15 Blood Urea Nitrogen 8 L 9-23 mg/dL Creatinine 0.91 0.700-1.30 mg/dL Glomerular Filtration Rate Calc 101 >90 mL/min BUN/Creatinine Ratio 8.8 L 10.0-20.0 Serum Glucose 105 74-106 mg/dL Calcium Level 9.4 8.7-10.4 mg/dL Total Bilirubin 0.4 0.2-1.0 mg/dL Aspartate Amino Transferase (AST) 27 13-40 U/L Alanine Aminotransferase (ALT) 15 7-40 U/L Alkaline Phosphatase 66 46-116 U/L Total Protein 7.5 5.7-8.2 g/dL Albumin 4.4 3.2-4.8 g/dL Current Medications Medications (Trade) Dose Ordered Sig/Justina Route Start Time Stop Time Status Last Admin Aspirin 325 mg ONCE ONCE PO 09/26/25 00:30 09/26/25 00:31 DC 09/26/25 00:29 Departure 1 Departure Time of Disposition: 00:34 Impression: Primary Impression: Elevated troponin Disposition: ADMITTED INPATIENT Admit to: Tele Condition: Guarded Discharged With: Self MELITON AARON DO Sep 25, 2025 23:24
[2025-09-25 23:38] LABS: Hematocrit 41.6 % (41.0-53.0); Hemoglobin 13.9 g/dL (13.5-17.5); Mean Corpuscular Hemoglobin 30.2 pg (28.0-32.0); Mean Corpuscular Volume 90.7 fL (80.0-100.0); Nucleated Red Blood Cells % 0.2 %
[2025-09-26 00:05] LABS: Alanine Aminotransferase 15 U/L (7-40); Albumin 4.4 g/dL (3.2-4.8); Alkaline Phosphatase 66 U/L (46-116); Anion Gap 9 (5-15); BUN/Creatinine Ratio 8.8 (10.0-20.0); Bilirubin, Total 0.4 mg/dL (0.2-1.0); Calcium 9.4 mg/dL (8.7-10.4); Carbon Dioxide 25 mmol/L (20-31); Chloride 106 mmol/L (98-107); Glucose 105 mg/dL (74-106); Potassium 3.9 mmol/L (3.5-5.1); Sodium 140 mmol/L (136-145); Total Protein 7.5 g/dL (5.7-8.2)
--- NOTE | 2025-09-26 00:14 | DVH ---
EXAM: CT HEAD WITHOUT CONTRAST INDICATION: ALEX TECHNIQUE: CT of the head without intravenous contrast. Radiation Dose Information: CT Dose: CTDI volume is 56.09 mGy. Dose-length product is 993.21 mGy*cm The dose indicators for CT are the volume Computed Tomography (CT) Dose Index (CTDIvol) and the Dose Length Product (DLP), and are measured in units of mGy and mGy-cm, respectively. These indicators are not patient dose, but values generated from the CT scanner acquisition factors. The report includes radiation exposure data for exposures received during this examination. COMPARISON: MRI BRAIN HEAD WO CONTRAST on DOS: 02/06/23, CT STROKE CTH on DOS: 02/05/23, BRAIN HEAD WO CONTRAST on DOS: 09/03/22, HEAD WITHOUT CONTRAST on DOS: 09/03/22 FINDINGS: There is no evidence of acute intracranial hemorrhage, extra-axial collection, mass effect, midline shift, herniation or hydrocephalus. The ventricles, sulci and cisterns are age appropriate. The smith-white differentiation is intact. Patchy periventricular and subcortical white matter hypoattenuation is nonspecific but may be related to small vessel ischemic disease. The visualized paranasal sinuses and mastoid air cells are clear. The surrounding soft tissues and osseous structures are unremarkable. IMPRESSION: No acute intracranial abnormality.
[2025-09-26 00:16] LABS: Blood Urea Nitrogen 8 mg/dL (9-23)
[2025-09-26] MEDS ORDERED: ACETAMINOPHEN 325 MG TAB PO PRN (01:45)
[2025-09-26] MEDS ORDERED: ONDANSETRON HCL 4 MG/2 ML VIAL IV PRN (01:45)
[2025-09-26] MEDS ORDERED: DEXTROSE (50%) 50ML SYRG IV PRN (01:45)
[2025-09-26] MEDS ORDERED: NITROGLYCERIN 0.4 MG SL TAB SL PRN (01:45)
[2025-09-26] MEDS ORDERED: MORPHINE SULFATE INJ 2 MG/ml SYRG IV PRN (01:45)
--- NOTE | 2025-09-26 04:18 | DVHHP2 ---
History of Present Illness Reason for Visit: Headache History of Present Illness 55-year-old male presents for evaluation of a headache. Patient presents with a two day history of a right-sided temporal headache. On arrival patient's blood pressure was in the 170s. Denies blurred vision or unilateral weakness. No chest pain or shortness for breath. Past Medical History CVA, AFib, hypertension, diabetes mellitus Past Surgical History Pacemaker Family History Noncontributory Smoke: No ALCOHOL: none Drugs: None Lives: with Family Review of Systems Review of Systems Review of systems are currently negative otherwise addressed in HPI. Allergies: Coded Allergies: NO KNOWN ALLERGIES (Unverified , 09/25/25) Medications Current Medications Medications Dose Ordered Sig/Justina Route Start Time Stop Time Status Last Admin Dose Admin Carvedilol 6.25 mg Q12HR PO 09/26/25 10:00 Empaglifozin 10 mg DAILY PO 09/26/25 10:00 Aspirin 162 mg DAILY PO 09/26/25 10:00 Atorvastatin Calcium 20 mg HS PO 09/26/25 22:00 Clonidine HCl 0.1 mg Q6HP PRN PO 09/26/25 01:45 Acetaminophen/ Hydrocodone Bitart 1 tab Q4HP PRN PO 09/26/25 01:45 Ondansetron HCl 4 mg Q4HP PRN IV 09/26/25 01:45 Acetaminophen 650 mg Q6HP PRN PO 09/26/25 01:45 Nitroglycerin 0.4 mg Q5MINP PRN SL 09/26/25 01:45 Morphine Sulfate 2 mg Q30M PRN IV 09/26/25 01:45 Diagnostic Test (Pha) 1 strip ACHS 09/26/25 07:00 Insulin Human Regular ACHS SC 09/26/25 07:00 Dextrose 50 ml UD PRN IV 09/26/25 01:45 Exam Vital Signs Vital Signs Date Time Temp Pulse Resp B/P (MAP) Pulse Ox O2 Delivery O2 Flow Rate FiO2 09/25/25 23:03 78 09/25/25 22:38 98.5 16 161/90 96 98.5 Exam Gen: 55-year-old male in no apparent distress. Skin: Warm, dry, normal color and texture, no rash. HEENT: Normocephalic atraumatic, mucous membranes moist and pink. Neck: Cervical and supraclavicular nodes normal without enlargement, trachea is midline, thyroid gland is normal without masses. Pulmonary: Clear to auscultation and percussion bilaterally. Cardiac: Regular rate and rhythm. No murmur Abdomen: Soft, nontender, nondistended, bowel sounds present all 4 quadrants, no guarding, no rigidity, no organomegaly. Extremities: No cyanosis, clubbing, no edema Neuro: Cranial nerves II through XII grossly intact, normal affect and speech, no focal motor deficits. Labs/Xrays ORDERING PHYSICIAN: MELITON AARON DO PROCEDURE(s): HWOCT - HEAD WITHOUT CONTRAST REASON: ALEX ORDER NUMBER(s): [id number], ACCESSION NUMBER(s): [id number] EXAM: CT HEAD WITHOUT CONTRAST INDICATION: ALEX TECHNIQUE: CT of the head without intravenous contrast. Radiation Dose Information: CT Dose: CTDI volume is 56.09 mGy. Dose-length product is 993.21 mGy*cm The dose indicators for CT are the volume Computed Tomography (CT) Dose Index (CTDIvol) and the Dose Length Product (DLP), and are measured in units of mGy and mGy-cm, respectively. These indicators are not patient dose, but values generated from the CT scanner acquisition factors. The report includes radiation exposure data for exposures received during this examination. COMPARISON: MRI BRAIN HEAD WO CONTRAST on DOS: 02/06/23, CT STROKE CTH on DOS: 02/05/23, BRAIN HEAD WO CONTRAST on DOS: 09/03/22, HEAD WITHOUT CONTRAST on DOS: 09/03/22 FINDINGS: There is no evidence of acute intracranial hemorrhage, extra-axial collection, mass effect, midline shift, herniation or hydrocephalus. The ventricles, sulci and cisterns are age appropriate. The smith-white differentiation is intact. Patchy periventricular and subcortical white matter hypoattenuation is nonspecific but may be related to small vessel ischemic disease. The visualized paranasal sinuses and mastoid air cells are clear. The surrounding soft tissues and osseous structures are unremarkable. IMPRESSION: No acute intracranial abnormality. Labs Test 09/26/25 02:30 09/25/25 23:29 Range/Units Troponin I High Sensitivity 95 *H </=54 ng/L White Blood Count 7.4 4.4-10.8 10^3/uL Red Blood Count 4.59 4.5-5.90 10^6/uL Hemoglobin 13.9 13.5-17.5 g/dL Hematocrit 41.6 41.0-53.0 % Mean Corpuscular Volume 90.7 80.0-100.0 fL Mean Corpuscular Hemoglobin 30.2 28.0-32.0 pg Mean Corpuscular Hemoglobin Concent 33.3 32.0-36.0 g/dL Red Cell Distribution Width 14.2 11.8-14.3 % Platelet Count 195 140-450 10^3/uL Mean Platelet Volume 9.0 6.9-10.8 fL Neutrophils (%) (Auto) 63.2 37.0-80.0 % Lymphocytes (%) (Auto) 27.0 10.0-50.0 % Monocytes (%) (Auto) 7.8 0.0-12.0 % Eosinophils (%) (Auto) 1.2 0.0-7.0 % Basophils (%) (Auto) 0.8 0.0-2.0 % Neutrophils # (Auto) 4.7 1.6-8.6 10 ^3/uL Lymphocytes # (Auto) 2.0 0.4-5.4 10 ^3/uL Monocytes # (Auto) 0.6 0-1.3 10 ^3/uL Eosinophils # (Auto) 0.1 0-0.8 10 ^3/uL Basophils # (Auto) 0.1 0-0.2 10 ^3/uL Nucleated Red Blood Cells 0.2 % Sodium Level 140 136-145 mmol/L Potassium Level 3.9 3.5-5.1 mmol/L Chloride Level 106 98-107 mmol/L Carbon Dioxide Level 25 20-31 mmol/L Anion Gap 9 5-15 Blood Urea Nitrogen 8 L 9-23 mg/dL Creatinine 0.91 0.700-1.30 mg/dL Glomerular Filtration Rate Calc 101 >90 mL/min BUN/Creatinine Ratio 8.8 L 10.0-20.0 Serum Glucose 105 74-106 mg/dL Calcium Level 9.4 8.7-10.4 mg/dL Total Bilirubin 0.4 0.2-1.0 mg/dL Aspartate Amino Transferase (AST) 27 13-40 U/L Alanine Aminotransferase (ALT) 15 7-40 U/L Alkaline Phosphatase 66 46-116 U/L Total Protein 7.5 5.7-8.2 g/dL Albumin 4.4 3.2-4.8 g/dL SEPSIS Sepsis Screen Date sepsis recognized/suspect: Sep 25, 2025 Time Sepsis recognized/suspect: 2237 Recent Procedure: No On Antibiotic Therapy: No Respiratory Rate >20: No Heart Rate >90: No Temp<36 C (96.8 F) or >38.3 C: No SBP <90 or MAP <65 mmHG: No New Acute Mental Status Change: No Is the patient on CPAP, BIPAP,: No Physician Orders Head Without Contrast (09/25/25 22:51) Carvedilol Tablet (Coreg Tablet) (09/26/25 10:00) Empagliflozin (Jardiance) (09/26/25 10:00) Aspirin Tablet (09/26/25 10:00) * Cardiology Consult (09/26/25 01:37) Atorvastatin (Lipitor) (09/26/25 22:00) Clonidine Hcl Tablet (Catapres Tablet) (09/26/25 01:45) Basic Metabolic Panel (09/27/25 04:00) Admit (09/26/25 01:37) Hydrocodone-Acet 5/325mg Tab ([place] 5/32 (09/26/25 01:45) Ondansetron Hcl (Zofran) (09/26/25 01:45) Cardiac Diet-2gna,Lofat,Lochol (09/26/25 Breakfast) Echo 2d Mode Cardiac Dop (09/26/25 01:37) Condition: Fair (09/26/25 01:37) Acetaminophen Tablet (Tylenol Tablet) (09/26/25 01:45) Bedrest With Bathroom Privileg (09/26/25 01:37) Nitroglycerin Sublingual (Ntrostat Subli (09/26/25 01:45) Morphine Sulfate Injection (09/26/25:45) Stat Ekg For Chest Pain (09/26/25:37) Notify Of Changes From Base (09/26/25 01:37) Weight Loss Counselor For 24 Hours (09/26/25 01:37) Emergency Dysrhythmia Protocol (09/26/25:37) Rhythm Strips Once Every Shift (09/26/25 01:37) Oxygen By Nasal Cannula (09/26/25 01:37) Glucose Blood (Accu-Chek Comfort Curve T (09/26/25 07:00) Insulin R (Human) (Insulin R) (09/26/25 07:00) Dextrose 50% Syringe (09/26/25 01:45) Vital Signs Date Time Temp Pulse Resp B/P (MAP) Pulse Ox O2 Delivery O2 Flow Rate FiO2 09/25/25 23:03 78 09/25/25 22:38 98.5 69 16 161/90 96 98.5 Laboratory Tests Test 09/25/25 23:29 White Blood Count 7.4 10^3/uL (4.4-10.8) Medications Medications Dose Ordered Sig/Justina Route Start Time Stop Time Status Last Admin Dose Admin Aspirin 325 mg ONCE ONCE PO 09/26/25 00:30 09/26/25 00:31 DC 09/26/25 00:29 325 MG Assessment/Plan Assessment/Plan Assessment Accelerated hypertension Intractable headache Elevated troponin Status post pacemaker Plan Admit the patient to telemetry to the hospitalist Cardiology consultation Echocardiogram pending Resume home medications As needed antihypertensives Continue treatment per orders. Plan discussed with: Patient My Orders Orders - SOULEYMANE CARCAMO AGACNSujatha Procedure Category Date Status Time Carvedilol Tablet PHA 09/26/25 In Process (Coreg Tablet) 10:00 Empagliflozin PHA 09/26/25 In Process (Jardiance) 10:00 Aspirin Tablet PHA 09/26/25 In Process 10:00 * Cardiology Consult CONS 09/26/25 Transmitted 01:37 Atorvastatin (Lipitor) PHA 09/26/25 In Process 22:00 Clonidine Hcl Tablet PHA 09/26/25 In Process (Catapres Tablet) 01:45 Basic Metabolic Panel LAB 09/27/25 Verified 04:00 Admit ADMIT 09/26/25 Transmitted 01:37 Hydrocodone-Acet PHA 09/26/25 In Process 5/325mg Tab ([place] 01:45 Ondansetron Hcl PHA 09/26/25 In Process (Zofran) 01:45 Cardiac DIET 09/26/25 Transmitted Diet-2gna,Lofat,Lochol Breakfast Echo 2d Mode Cardiac US 09/26/25 Logged DOP 01:37 Condition: Fair JB 09/26/25 In Process 01:37 Acetaminophen Tablet PHA 09/26/25 In Process (Tylenol Tablet) 01:45 Bedrest With Bathroom [facility] 09/26/25 In Process Privileg 01:37 Nitroglycerin [facility] 09/26/25 In Process Sublingual (Ntrostat 01:45 Morphine Sulfate [facility] 09/26/25 In Process Injection 01:45 Stat Ekg For Chest [facility] 09/26/25 In Process Pain 01:37 Notify Of Changes [facility] 09/26/25 In Process From Base 01:37 Weight Loss Counselor For [facility] 09/26/25 In Process 24 Hours 01:37 Emergency Dysrhythmia [facility] 09/26/25 In Process Protocol 01:37 Rhythm Strips Once [facility] 09/26/25 In Process Every Shift 01:37 Oxygen By Nasal RT 09/26/25 Transmitted Cannula 01:37 Glucose Blood [facility] 09/26/25 In Process (Accu-Chek Comfort 07:00 Insulin R (Human) [facility] 09/26/25 In Process (Insulin R) 07:00 Dextrose 50% Syringe [facility] 09/26/25 In Process 01:45 Date of Service: Sep 26, 2025 Billing Provider: SOULEYMANE CARCAMO Common Visit Codes: [id number] INP/OBS CARE (HIGH) SOULEYMANE CARCAMO Sep 26, 2025 04:18
[2025-09-26 05:42] VITALS: BP_SYST 141; BP_DIAS 86; BP_DIAS 89; PULSE 69; PULSE 70; RESP 17; TEMP 99; O2SAT 94
[2025-09-26] MEDS: ACCU-CHEK COMFORT CURVE STRIP VI SCH (06:17)
[2025-09-26] MEDS: InsuLIN REG 1unit/0.01ml Soln (100units/ml) SC SCH (06:17)
[2025-09-26 08:00] VITALS: PULSE 67; O2SAT 97
[2025-09-26 08:35] VITALS: BP 138/90; PULSE 65; RESP 17; TEMP 97.8; O2SAT 94
[2025-09-26] MEDS: HYDROcodone-ACET 5/325MG TAB PO PRN (10:26)
[2025-09-26] MEDS: CARVEDILOL 3.125 MG TAB PO SCH (10:35)
[2025-09-26] MEDS: EMPAGLIFLOZIN 10 MG TAB PO SCH (10:36)
[2025-09-26 13:00] VITALS: BP 154/96; PULSE 63; RESP 16; TEMP 97.8; O2SAT 97
--- NOTE | 2025-09-26 17:24 | DVHDS2 ---
Discharge Summary Date of Admission Sep 26, 2025 at 01:37 Date of Discharge: Sep 26, 2025 Labs/Diagnostic Data: Laboratory Results Test 09/26/25 11:48 09/26/25 02:30 09/25/25 23:29 POC Glucose 85 mg/dl (70-106) Troponin I High Sensitivity 95 ng/L (</=54) White Blood Count 7.4 10^3/uL (4.4-10.8) Red Blood Count 4.59 10^6/uL (4.5-5.90) Hemoglobin 13.9 g/dL (13.5-17.5) Hematocrit 41.6 % (41.0-53.0) Mean Corpuscular Volume 90.7 fL (80.0-100.0) Mean Corpuscular Hemoglobin 30.2 pg (28.0-32.0) Mean Corpuscular Hemoglobin Concent 33.3 g/dL (32.0-36.0) Red Cell Distribution Width 14.2 % (11.8-14.3) Platelet Count 195 10^3/uL (140-450) Mean Platelet Volume 9.0 fL (6.9-10.8) Neutrophils (%) (Auto) 63.2 % (37.0-80.0) Lymphocytes (%) (Auto) 27.0 % (10.0-50.0) Monocytes (%) (Auto) 7.8 % (0.0-12.0) Eosinophils (%) (Auto) 1.2 % (0.0-7.0) Basophils (%) (Auto) 0.8 % (0.0-2.0) Neutrophils # (Auto) 4.7 10 ^3/uL (1.6-8.6) Lymphocytes # (Auto) 2.0 10 ^3/uL (0.4-5.4) Monocytes # (Auto) 0.6 10 ^3/uL (0-1.3) Eosinophils # (Auto) 0.1 10 ^3/uL (0-0.8) Basophils # (Auto) 0.1 10 ^3/uL (0-0.2) Nucleated Red Blood Cells 0.2 % Sodium Level 140 mmol/L (136-145) Potassium Level 3.9 mmol/L (3.5-5.1) Chloride Level 106 mmol/L (98-107) Carbon Dioxide Level 25 mmol/L (20-31) Anion Gap 9 (5-15) Blood Urea Nitrogen 8 mg/dL (9-23) Creatinine 0.91 mg/dL (0.700-1.30) Glomerular Filtration Rate Calc 101 mL/min (>90) BUN/Creatinine Ratio 8.8 (10.0-20.0) Serum Glucose 105 mg/dL (74-106) Calcium Level 9.4 mg/dL (8.7-10.4) Total Bilirubin 0.4 mg/dL (0.2-1.0) Aspartate Amino Transferase (AST) 27 U/L (13-40) Alanine Aminotransferase (ALT) 15 U/L (7-40) Alkaline Phosphatase 66 U/L (46-116) Total Protein 7.5 g/dL (5.7-8.2) Albumin 4.4 g/dL (3.2-4.8) Other Laboratory Tests 09/25/25 23:29 Brief Hx & Hospital Course: 55-year-old male with a known history of hypertension, dyslipidemia, previous history of CVA with a left-sided deficit, hypothyroidism, diabetes mellitus type 2, congestive heart failure with the EF of 50% status post AICD presented to the hospital with a headache. CT head was negative for any acute pathology. Patient's headache has been resolved. Patient's has a hypertensive urgency which is resolved. Patient was resumed on home medication. Patient is currently cleared to be discharged with a close follow up as an outpatient with the PCP. Condition at Discharge: Stable Final Diagnosis/Problems List 1. Acute cephalgia, resolved 2. Hypertensive urgency, resolved 3. Status post AICD 4. Congestive heart failure with systolic dysfunction with the EF of 15% currently in decompensation 5. Previous history of CVA with a mild left-sided deficit. Discharge Disposition: Home SNF Discharge Will this Physician continue t: No Discharge Instruct/Medications Diet: Cardiac 2g Na,low cholest Activity: No Restrictions, As Tolerated Follow Up/Referral: Please follow up with the PCP in 1-2 weeks Medications: Resume home medications Continued Medications: Ascorbic Acid (Vitamin C) 1,000 Mg Tab 1 TAB PO DAILY for SUPPLEMENT Aspirin (Aspirin) 81 Mg Tab 1 TAB PO DAILY for HEART ATTACK PREVENTION Atorvastatin Calcium (Atorvastatin Calcium) 80 Mg Tab 80 MG PO DAILY for 30 Days, #30 TAB Carvedilol (Carvedilol) 6.25 Mg Tab 1 TAB PO BID Cholecalciferol (Vitamin D3 Maximum Streng) 5,000 Unit Cap 1 CAP PO DAILY for SUPPLEMENT Clopidogrel Bisulfate (Clopidogrel) 75 Mg Tab 75 MG PO DAILY for 30 Days, #30 TAB Cyanocobalamin (B-12) 1,000 Mcg Cap 1 CAP PO DAILY for SUPPLEMENT Cyclobenzaprine Hcl (Cyclobenzaprine Hcl) 10 Mg Tab 1 TAB PO Q8HR PRN for MUSCLE SPASMS Empagliflozin (Jardiance) 10 Mg Tab 1 TAB PO QAM for DIABETES Furosemide (Furosemide) 20 Mg Tab 1 TAB PO DAILY for CHF Ibuprofen (Ibuprofen) 600 Mg Tab 1 TAB PO BID PRN Insulin Glargine (Lantus) 100 Unit/Ml Inj 20 UNIT SC HS for DIABETES HOLD FOR 2 DAYS. MAY RESUME ON Sunday07/07/23 Ivabradine Hydrochloride (Corlanor) 5 Mg Tab 1 TAB PO BID Levothyroxine Sodium (Levothyroxine Sodium) 25 Mcg Tab 75 MCG PO DAILY for 30 Days, #90 TAB Metformin Hydrochloride (Metformin Hcl) 850 Mg Tab 1 TAB PO BID for DIABETES Potassium Chloride (Potassium Chloride ER) 10 Meq Tab 1 TAB PO BIDWM for SUPPLEMENT Sacubitril-Valsartan (Entresto 24-26 mg) 1 Tab Tab 1 TAB PO BID for 30 Days, #60 TAB Scheduled Ascorbic Acid (Vitamin C), 1 TAB PO DAILY, (Reported) Aspirin (Aspirin), 1 TAB PO DAILY, (Reported) Atorvastatin Calcium (Atorvastatin Calcium), 80 MG PO DAILY Carvedilol (Carvedilol), 1 TAB PO BID, (Reported) Cholecalciferol (Vitamin D3 Maximum Streng), 1 CAP PO DAILY, (Reported) Clopidogrel Bisulfate (Clopidogrel), 75 MG PO DAILY Cyanocobalamin (B-12), 1 CAP PO DAILY, (Reported) Empagliflozin (Jardiance), 1 TAB PO QAM, (Reported) Furosemide (Furosemide), 1 TAB PO DAILY, (Reported) Ibuprofen (Ibuprofen), 1 TAB PO BID PRN, (Reported) Insulin Glargine (Lantus), 20 UNIT SC HS, (Reported) Ivabradine Hydrochloride (Corlanor), 1 TAB PO BID, (Reported) Levothyroxine Sodium (Levothyroxine Sodium), 75 MCG PO DAILY Metformin Hydrochloride (Metformin Hcl), 1 TAB PO BID, (Reported) Potassium Chloride (Potassium Chloride ER), 1 TAB PO BIDWM, (Reported) Sacubitril-Valsartan (Entresto 24-26 mg), 1 TAB PO BID Scheduled PRN Cyclobenzaprine Hcl (Cyclobenzaprine Hcl), 1 TAB PO Q8HR PRN for MUSCLE SPASMS, (Reported) Discharge Statement: "Patient was advised to return to the ER or call 911 if any headaches, dizziness, shortness of breath, chest pain, abdominal pain, bleeding, fevers, or worsening of medical condition. Patient was counseled about treatment plan, medications, possible side effects, patientverbalized understanding. All questions were answered to the best of my ability. This discharge took greater then 30 minutes in planning, reviewing documentation, counseling the patient, and discussing with other team members." ASSESSMENT ASSESSMENT Assessment 1. Acute cephalgia, resolved 2. Hypertensive urgency, resolved 3. Status post AICD 4. Congestive heart failure with systolic dysfunction with the EF of 15% currently in decompensation Date of Service: Sep 26, 2025 Billing Provider: MANDY CHE MD Common Visit Codes: [id number] DISCH DAY >30min MANDY CHE MD Sep 26, 2025 17:24
[2025-09-26] MEDS ORDERED: ATORVASTATIN 20 MG TAB PO SCH (22:00)
== END 2025-09-26 19:56 | disposition home or self-care (01) | DRG 199 ==
LOC: ER 22:38 → EDBD 22:38 → EDUNIT# 09-26 01:37 → OVERFLOW 09-26 01:37 → TELE-WESTW 09-26 04:47
PROVIDERS: ADMIT Nurse Practitioner; ATTEND Nurse Practitioner
DX: I16.0 Hypertensive urgency (principal); I50.23 Acute on chronic systolic (congestive) heart failure; E11.9 Type 2 diabetes mellitus without complications; I11.0 Hypertensive heart disease with heart failure; I69.30 Unspecified sequelae of cerebral infarction; I48.91 Unspecified atrial fibrillation; E78.5 Hyperlipidemia, unspecified; Z95.810 Presence of automatic (implantable) cardiac defibrillator
CPT/HCPCS: 36415; 70450; 80053; 82962; 84484; 85025; 93005; G0378